=== PATIENT | female | born 1950 | race Caucasian/White ===

== ENCOUNTER 2018-08-24 13:11 | Observation (INO) ==
[2018-08-24] MEDS ORDERED: MORPHINE SULFATE 4 MG/ML SYRG IV ONE (13:30)
[2018-08-24] MEDS ORDERED: DIATRIZOATE MEGLUMINE, SODIUM 30 ML BTL PO ONE (13:30)
--- NOTE | 2018-08-24 13:34 | ERNOTE ---
Back Pain ER HPI Date of Service: 08/24/18 Presenting Symptoms: other - right back pain Time Seen by Provider: 08/24/18 13:22 Source: patient Exam Limitations: no limitations Immunizations: IMMUNIZATION HX Immunizations Up to Date Yes History of Influenza Vaccine Yes Hx Pneumococcal Vaccination Yes Allergies/Adverse Reactions: Allergies metformin Adverse Reaction (Intermediate, Verified 08/24/18 13:19) Diarrhea Home Medications: HOME MEDICATIONS Cinnamon Bark [Cinnamon] 500 mg PO DAILY 09/08/14 [Last Taken 08/15/18] L.acidoph,Paracasei, B.lactis [Probiotic] 1 ea PO DAILY 09/08/14 [Last Taken 08/15/18] Cholecalciferol (Vitamin D3) [Vitamin D] 1,000 unit PO DAILY 02/01/15 [Last Taken 08/15/18] Omeprazole [Prilosec] 40 mg PO DAILY PRN 02/01/15 [Last Taken 08/15/18] aspirin 325 mg tablet 325 mg PO DAILY 03/01/18 [Last Taken 08/15/18] blood sugar diagnostic strips See Dose Instructions .ROUTE .MEDSUPPLY #20 ea 03/01/18 [Last Taken Unknown] blood-glucose meter kit See Dose Instructions .ROUTE .MEDSUPPLY #1 ea 03/01/18 [Last Taken Unknown] cranberry concentrate-ascorbic acid 4,200 mg-20 mg capsule 1 cap PO DAILY cap 03/01/18 [Last Taken 08/15/18] lancets 28 gauge See Dose Instructions .ROUTE .MEDSUPPLY #25 ea 03/01/18 [Last Taken Unknown] noofwudn-unb-awxdu acid 0.4 mg-lycopene 300 mcg-lutein 250 mcg tablet 1 tab PO DAILY 03/01/18 [Last Taken 08/15/18] pravastatin 40 mg tablet 40 mg PO HS tab 03/01/18 [Last Taken 08/15/18] losartan 100 mg-hydrochlorothiazide 12.5 mg tablet 1 tab PO DAILY #90 tab 04/22/18 [Last Taken 08/15/18] amlodipine 10 mg tablet 10 mg PO DAILY #90 tab 05/06/18 [Last Taken 08/15/18] glimepiride 2 mg tablet 2 mg PO QAM #90 tab 05/06/18 [Last Taken 08/15/18] Contour Next Test Strips See Dose Instructions .ROUTE .MEDSUPPLY #100 ea NS 06/07/18 [Last Taken Unknown] sitagliptin 100 mg tablet 100 mg PO DAILY #90 tab 06/11/18 [Last Taken 08/15/18] sertraline 100 mg tablet 100 mg PO DAILY #90 tab 07/16/18 [Last Taken 08/15/18] sodium,potassium,mag sulfates 17.5 gram-3.13 gram-1.6 gram oral soln 177 ml PO DAILY 0 Days #354 ml 07/28/18 [Last Taken 08/16/18] Narrative: Patient presents to the ED for right low back pain. This has gotten to the point where she cannot stand it. Tylenol is not working. This is the kind of pain she had with her ruptured appendix. Nothing seems to make it better or worse, no radicular pain. no abdominal pain. No urinary Sx. Timing: Reports: constant Quality/Severity: Reports: severe Location of pain: Reports: other - right low back Activities at Onset: Reports: none Recent Injury?: Reports: no Possible Precipitating Factor: Reports: other - she had this with her ruptured appendix and it has remained but worse now Modifying Factors - (Improves): Reports: other - nothing Modifying Factors - (Worsens): Reports: other - nothing Associated Symptoms: Denies: fever/chills, constipation/incontinence, nausea/vomiting, problems urinating, difficulty walking Prior Treament: Reports: similar symptoms before Review of Systems - Review of Systems Constitutional: Absent: fever EYE: Present: no symptoms reported Respiratory: Absent: shortness of breath Cardiology: Absent: chest pain Gastrointestinal/Abdominal: Absent: abdominal pain Genitourinary: Absent: dysuria All Other Systems: All systems neg except as marked Medical History (Updated 08/16/18 @ 08:34 by Sindhu Cosme RN) Pes planus (Chronic) Onset Date: Unknown Hypothyroidism (Chronic) Onset Date: 04/09/17 Hypertriglyceridemia (Chronic) Onset Date: Unknown Hypertension (Chronic) Onset Date: Unknown GERD (gastroesophageal reflux disease) (Chronic) Onset Date: Unknown Diabetes mellitus type 2 in obese (Chronic) Onset Date: Unknown Depression (Chronic) Onset Date: Unknown Chronic renal disease, stage 3, moderately decreased glomerular filtration rate (GFR) between 30-59 mL/min/1.73 square meter Onset Date: 06/09/18 Hypercholesteremia Lives with spouse No history of alcohol use Non-tobacco user Perforated appendicitis Onset Date: 06/08/18 Wears glasses Surgical History: Surgical History (Updated 08/17/18 @ 11:09 by Vanna Landin RN) History of abdominal surgery Onset Date: 06/09/18 [facility]. IR Ct drain abscess/cyst retroperitoneal, abdomen. History of bilateral cataract extraction Onset Date: ~02/2015 Dr. Estiven Amaro History of colonoscopy Onset Date: 08/16/18 [facility]-10/30/14 normal. Recheck 10 years. 08/16/18-diverticulosis. Recheck 10 yrs. History of esophagogastroduodenoscopy (EGD) Onset Date: 10/30/14 [facility]-clotest negative. Inflammation GE junction, changes compatible w/[employer] History of left breast biopsy Onset Date: Unknown History of left breast biopsy Onset Date: Unknown History of sinogram with drain removal Onset Date: 06/18/18 Dr. Tiffani Kumar, [facility]. Family History: Family History (Updated 08/16/18 @ 08:35 by Sindhu Cosme RN) Brother Diabetes Sister Diabetes Father , age 92-old age History of coronary artery disease Diabetes Mother , qge 60-CAD CVA (cerebral vascular accident) History of coronary artery disease Brother , age 53-unknown cause Schizophrenia Daughter Alive and well Daughter Family history of thyroid problem Social History: Preferred Language Malay Do you have any yazidi or Yes: congregational cultural preference? Smoking Status Never smoker Abuse History No History of abuse Psych History Hx of Anxiety,Hx of Depression Alcohol Use none Drug Use none (Last Updated 07/29/18 @ 23:48 by Chiki Ch DO) No Social History Section defined Physical Exam - Physical Exam General Appearance: Present: alert, no apparent distress Head Exam: Present: normal inspection, no evidence of injury Eye Exam: Normal inspection: bilateral, PERRL: bilateral Ears, Nose, Throat: Present: normal ENT inspection Neck: Present: normal inspection Respiratory: Present: no respiratory distress, normal breath sounds, no accessory muscle use, lungs clear Cardiovascular/Chest: Present: regular rate, rhythm, normal peripheral pulses Gastrointestinal/Abdominal: Present: normal bowel sounds, nontender, nondistended, soft Back Exam: Absent: CVA tenderness (R), CVA tenderness (L) Extremity Exam: Present: normal inspection Neurological Exam: Present: alert, no motor/sensory deficits Skin Exam: Present: normal color, warm/dry Progress - Results and Orders Patient's Lab Results:: I have reviewed the patient's lab results. - Vital Signs Patient's Vital Signs:: I have reviewed the patient's vital signs. Vital Signs: Vital Signs 08/24/18 13:12 Temperature 36.5 C Pulse Rate 71 Respiratory Rate 14 Blood Pressure 120/43 O2 Sat by Pulse Oximetry 99 - CT/Ultrasound CT/Ultrasound Narrative: I reviewed official radiology report - Progress/Reassessment Chief Complaint: Back Pain Progress Note-Subjective: 08/24/18 17:26 IV ABx given for mild UTI. Results d/w Dr Bowman who saw the patient in the ED and will take the patient to the ED. Departure Clinical Impression: Back pain, Acute appendicitis - Departure Disposition: Still a patient Condition: Stable Referrals: Chiki Ch DO [Primary Care Provider] -
[2018-08-24] MEDS: NORMAL SALINE 1,000 ML IV ONE ×2 (13:43→18:54)
[2018-08-24 13:57] LABS: Hematocrit 33.6 % (37.0-47.0); Hemoglobin 10.7 gm/dL (12.5-16.0); Mean Cell Volume 92.6 fl (78-100); Mean Corpuscular Hemoglobin 29.5 pg (27-31); Mean Corpuscular Hgb Conc 31.8 g/dl (32-36); Mean Platelet Volume 9.9 fl (8-12.5); Neutrophil # 3.4 K/mm3 (1.3-6.0); Neutrophil % 56.1 % (42-75.0); Platelet Count 192 K/mm3 (150-450); Red Blood Count 3.63 M/mm3 (4.2-5.4); Red Cell Distribution Width 15.7 % (11.5-14.0)
[2018-08-24 14:26] LABS: ALT 22 U/L (19-67); AST 20 U/L (0-48); Albumin * 3.9 gm/dl (3.4-5.0); Alkaline Phosphatase * 127 U/L (50-170); BUN/Creatinine Ratio 29.3 (9.0-21.6); Bilirubin, Total 0.4 mg/dL (0.0-1.1); Blood Urea Nitrogen 39 mg/dL (3-23); Ca. Corrected For Albumin 8.4 mg/dL (8.4-10.2); Calcium * 8.6 mg/dL (7.9-10.9); Carbon Dioxide 21.6 mmol/L (24-32.6); Chloride 109 mmol/L (97-106); Glucose * 170 mg/dL (70-110); Lipase 202 U/L (73-393); Potassium 5.6 mmol/L (3.4-4.6); Sodium 141 mmol/L (132-142)
[2018-08-24 15:48] LABS: Urine Bilirubin Negative (NEGATIVE); Urine Blood 50 /ul (NEGATIVE); Urine Ketone Negative (NEGATIVE); Urine Nitrite Negative (NEGATIVE); Urine Protein Negative (NEGATIVE); Urine Urobilinogen Normal (NORMAL); Urine pH 5.5 pH (5.0-7.0)
[2018-08-24 15:54] LABS: Urine Appearance Clear (CLEAR); Urine Bacteria TRACE; Urine Color Yellow
[2018-08-24] MEDS ORDERED: cefTRIAXone SODIUM 1,000 MG/100 ML BAG IV ONE (15:59)
--- NOTE | 2018-08-24 17:29 | HP ---
Chief Complaint - Chief Complaint Date of Service: 08/24/18 Time of Service: 17:23 Chief Complaint: chronic appendicitis History of Present Illness: Tapan is a pleasant 68-year-old female who was initially seen in May for a ruptured appendicitis. She was transferred to the [facility] for a per cutaneous drain. She was told at that time there is a low chance of getting recurrent appendicitis, and that she did not need her appendix removed. She has since had a colonoscopy with Dr. Tsai. She has not felt well since May. Her pain has always been in her right lower back and she has never had abdominal pain with this. Her appendix is retrocecal. She had a CT scan today which shows acute appendicitis. Medical History (Updated 08/16/18 @ 08:34 by Sindhu Cosme RN) Pes planus (Chronic) Onset Date: Unknown Hypothyroidism (Chronic) Onset Date: 04/09/17 Hypertriglyceridemia (Chronic) Onset Date: Unknown Hypertension (Chronic) Onset Date: Unknown GERD (gastroesophageal reflux disease) (Chronic) Onset Date: Unknown Diabetes mellitus type 2 in obese (Chronic) Onset Date: Unknown Depression (Chronic) Onset Date: Unknown Chronic renal disease, stage 3, moderately decreased glomerular filtration rate (GFR) between 30-59 mL/min/1.73 square meter Onset Date: 06/09/18 Hypercholesteremia Lives with spouse No history of alcohol use Non-tobacco user Perforated appendicitis Onset Date: 06/08/18 Wears glasses Surgical History: Surgical History (Updated 08/17/18 @ 11:09 by Vanna Landin RN) History of abdominal surgery Onset Date: 06/09/18 [facility]. IR Ct drain abscess/cyst retroperitoneal, abdomen. History of bilateral cataract extraction Onset Date: ~02/2015 Dr. Estiven Amaro History of colonoscopy Onset Date: 08/16/18 [place]-10/30/14 normal. Recheck 10 years. 08/16/18-diverticulosis. Recheck 10 yrs. History of esophagogastroduodenoscopy (EGD) Onset Date: 10/30/14 [place]-clotest negative. Inflammation GE junction, changes compatible w/[employer] History of left breast biopsy Onset Date: Unknown History of left breast biopsy Onset Date: Unknown History of sinogram with drain removal Onset Date: 06/18/18 Dr. Tiffani Kumar, [facility]. Family History: Family History (Updated 08/16/18 @ 08:35 by Sindhu Cosme RN) Brother Diabetes Sister Diabetes Father , age 92-old age Diabetes History of coronary artery disease Mother , qge 60-CAD History of coronary artery disease CVA (cerebral vascular accident) Brother , age 53-unknown cause Schizophrenia Daughter Alive and well Daughter Family history of thyroid problem Social History: Preferred Language Lithuanian Do you have any yazdanism or Yes: confucianist cultural preference? Smoking Status Never smoker Abuse History No History of abuse Psych History Hx of Anxiety,Hx of Depression Alcohol Use none Drug Use none (Last Updated 07/29/18 @ 23:48 by Chiki Ch DO) No Social History Section defined Review Of Systems (GEN) - Review of Systems Generalized/Overall Review: Present: Malaise EENTM: Present: No Symptoms Reported Respiratory: Present: No Symptoms Reported Cardiac: Present: No Symptoms Reported Abdominal: Present: No Symptoms Reported Genitourinary: Present: No Symptoms Reported Musculoskeletal: Present: Back Pain Neurological: Present: No Symptoms Reported Skin: Present: No Symptoms Reported Endocrine: Present: No Symptoms Reported Immunizations: IMMUNIZATION HX Immunizations Up to Date Yes History of Influenza Vaccine Yes Hx Pneumococcal Vaccination Yes Allergies/Adverse Reactions: Allergies Allergy/AdvReac Type Severity Reaction Status Date / Time metformin AdvReac Intermediate Diarrhea Verified 08/24/18 13:19 Home Medications: HOME MEDICATIONS Cinnamon Bark [Cinnamon] 500 mg PO DAILY 09/08/14 [Last Taken 08/15/18] L.acidoph,Paracasei, B.lactis [Probiotic] 1 ea PO DAILY 09/08/14 [Last Taken 08/15/18] Cholecalciferol (Vitamin D3) [Vitamin D] 1,000 unit PO DAILY 02/01/15 [Last Taken 08/15/18] Omeprazole [Prilosec] 40 mg PO DAILY PRN 02/01/15 [Last Taken 08/15/18] aspirin 325 mg tablet 325 mg PO DAILY 03/01/18 [Last Taken 08/15/18] blood sugar diagnostic strips See Dose Instructions .ROUTE .MEDSUPPLY #20 ea 03/01/18 [Last Taken Unknown] blood-glucose meter kit See Dose Instructions .ROUTE .MEDSUPPLY #1 ea 03/01/18 [Last Taken Unknown] cranberry concentrate-ascorbic acid 4,200 mg-20 mg capsule 1 cap PO DAILY cap 03/01/18 [Last Taken 08/15/18] lancets 28 gauge See Dose Instructions .ROUTE .MEDSUPPLY #25 ea 03/01/18 [Last Taken Unknown] nojjwctw-syh-bpdtj acid 0.4 mg-lycopene 300 mcg-lutein 250 mcg tablet 1 tab PO DAILY 03/01/18 [Last Taken 08/15/18] pravastatin 40 mg tablet 40 mg PO HS tab 03/01/18 [Last Taken 08/15/18] losartan 100 mg-hydrochlorothiazide 12.5 mg tablet 1 tab PO DAILY #90 tab 04/22/18 [Last Taken 08/15/18] amlodipine 10 mg tablet 10 mg PO DAILY #90 tab 05/06/18 [Last Taken 08/15/18] glimepiride 2 mg tablet 2 mg PO QAM #90 tab 05/06/18 [Last Taken 08/15/18] Contour Next Test Strips See Dose Instructions .ROUTE .MEDSUPPLY #100 ea NS 06/07/18 [Last Taken Unknown] sitagliptin 100 mg tablet 100 mg PO DAILY #90 tab 06/11/18 [Last Taken 08/15/18] sertraline 100 mg tablet 100 mg PO DAILY #90 tab 07/16/18 [Last Taken 08/15/18] sodium,potassium,mag sulfates 17.5 gram-3.13 gram-1.6 gram oral soln 177 ml PO DAILY 0 Days #354 ml 07/28/18 [Last Taken 08/16/18] Exam - Exam Vital Signs: Vital Signs - Last Taken Temp 36.5 C 08/24/18 13:12 Pulse 69 08/24/18 16:44 Resp 14 08/24/18 16:44 BP 131/49 08/24/18 16:44 Pulse Ox 95 08/24/18 16:44 Constitutional: Present: Alert, Oriented x3, Cooperative ENT Exam: Present: hearing grossly normal Eye Exam: bilateral eye: normal inspection Neck: Present: supple Back Exam: Present: CVA tenderness (R) Breasts: Present: Exam deferred Respiratory: Present: lungs clear, normal breath sounds, no respiratory distress Cardiovascular/Chest: Present: regular rate, rhythm Abdomen: Present: Normal bowel sounds, soft, nontender, no rebound tenderness /Rectal: Present: Exam deferred Extremity: Present: normal range of motion Skin Exam: Present: normal color Neurologic: Present: director underwriter sales II-XII nml as tested Appearance: Present: appropriate appearance, appropriate insight Eye contact: Present: cooperative, good eye contact Thoughts: Present: normal thought pattern Diagnostic Studies: Abnormal Lab Results 08/24/18 08/24/18 08/24/18 Range/Units 13:45 13:45 Unknown RBC 3.63 L (4.2-5.4) M/mm3 Hgb 10.7 L (12.5-16.0) gm/dL Hct 33.6 L (37.0-47.0) % MCHC 31.8 L (32-36) g/dl RDW 15.7 H (11.5-14.0) % Monocytes % 10.3 H (0.0-9) % Eosinophils % 5.8 H (0.0-3.0) % Potassium 5.6 H (3.4-4.6) mmol/L Chloride 109 H (97-106) mmol/L Carbon Dioxide 21.6 L (24-32.6) mmol/L Anion Gap 16.0 H (6.8-13.8) mmol/L BUN 39 H (3-23) mg/dL Est GFR (Non-Af Amer) 42 L (60-130) mL/min BUN/Creatinine Ratio 29.3 H (9.0-21.6) Random Glucose 170 H (70-110) mg/dL Urine Blood 50 H (NEGATIVE) /ul Ur Leukocyte Esterase 75 H (NEGATIVE) /ul Urine RBC 10-25 H (0-5) /hpf Urine WBC 5-10 H (0-5) /hpf Laboratory Results WBC 6.0 K/mm3 (4.0-10.5) 08/24/18 13:45 RBC 3.63 M/mm3 (4.2-5.4) L 08/24/18 13:45 Hgb 10.7 gm/dL (12.5-16.0) L 08/24/18 13:45 Hct 33.6 % (37.0-47.0) L 08/24/18 13:45 MCV 92.6 fl (78-100) 08/24/18 13:45 MCH 29.5 pg (27-31) 08/24/18 13:45 MCHC 31.8 g/dl (32-36) L 08/24/18 13:45 RDW 15.7 % (11.5-14.0) H 08/24/18 13:45 Plt Count 192 K/mm3 (150-450) 08/24/18 13:45 MPV 9.9 fl (8-12.5) 08/24/18 13:45 Immature Gran % (Auto) 0.20 % (0.001-0.429) 08/24/18 13:45 Immature Gran # (Auto) 0.01 K/mm3 (0.000-0.0310) 08/24/18 13:45 56.1 % (42-75.0) 08/24/18 13:45 26.9 % (20-51) 08/24/18 13:45 10.3 % (0.0-9) H 08/24/18 13:45 5.8 % (0.0-3.0) H 08/24/18 13:45 0.7 % (0.0-1.0) 08/24/18 13:45 Nucleated RBC % 0.0 k/mm3 (0-1) 08/24/18 13:45 3.4 K/mm3 (1.3-6.0) 08/24/18 13:45 1.62 k/mm3 (1.5-3.5) 08/24/18 13:45 0.6 k/mm3 (0.0-1.0) 08/24/18 13:45 0.4 k/mm3 (0.0-0.7) 08/24/18 13:45 Absolute Basophils 0.0 k/mm3 (0.0-0.1) 08/24/18 13:45 Sodium 141 mmol/L (132-142) 08/24/18 13:45 142 mmol/L (130-142) 08/24/18 13:45 Potassium 5.6 mmol/L (3.4-4.6) H 08/24/18 13:45 Chloride 109 mmol/L (97-106) H 08/24/18 13:45 Carbon Dioxide 21.6 mmol/L (24-32.6) L 08/24/18 13:45 16.0 mmol/L (6.8-13.8) H 08/24/18 13:45 BUN 39 mg/dL (3-23) H 08/24/18 13:45 1.33 mg/dL (0.4-1.4) 08/24/18 13:45 Est GFR (Non-Af Amer) 42 mL/min (60-130) L 08/24/18 13:45 29.3 (9.0-21.6) H 08/24/18 13:45 170 mg/dL (70-110) H 08/24/18 13:45 Calcium 8.6 mg/dL (7.9-10.9) 08/24/18 13:45 Calcium Adj for Albumin 8.4 mg/dL (8.4-10.2) 08/24/18 13:45 0.4 mg/dL (0.0-1.1) 08/24/18 13:45 AST 20 U/L (0-48) 08/24/18 13:45 ALT 22 U/L (19-67) 08/24/18 13:45 127 U/L (50-170) 08/24/18 13:45 C-Reactive Prot, Quant Less than 0.2 mg/dL (0.0-0.9) 08/24/18 13:45 8.0 gm/dL (6.2-8.2) 08/24/18 13:45 3.9 gm/dl (3.4-5.0) 08/24/18 13:45 202 U/L (73-393) 08/24/18 13:45 Yellow 08/24/18 Unknown Clear (CLEAR) 08/24/18 Unknown 5.5 pH (5.0-7.0) 08/24/18 Unknown Ur Specific [place] 1.020 SP.GR. (1.005-1.010) 08/24/18 Unknown Negative mg/dL (NEGATIVE) 08/24/18 Unknown Negative mg/dL (NEGATIVE) 08/24/18 Unknown Negative mg/dL (NEGATIVE) 08/24/18 Unknown 50 /ul (NEGATIVE) H 08/24/18 Unknown Negative (NEGATIVE) 08/24/18 Unknown Negative mg/dl (NEGATIVE) 08/24/18 Unknown Normal EU/dl (NORMAL) 08/24/18 Unknown Ur Leukocyte Esterase 75 /ul (NEGATIVE) H 08/24/18 Unknown 10-25 /hpf (0-5) H 08/24/18 Unknown 5-10 /hpf (0-5) H 08/24/18 Unknown Ur Epithelial Cells 0-5 /hpf (0-5) 08/24/18 Unknown Trace (NONE) 08/24/18 Unknown Culture to follow 08/24/18 Unknown Assessment/Plan - Narrative Narrative: We'll plan to go to the operating room for laparoscopic versus open appendectomy. Risks and benefits of the procedure were discussed with the patient including bleeding, infection, and need for open surgery. She voices understanding and would like to proceed. She has not felt well since she had the ruptured appendicitis in May. I discussed the case with her primary care provider Dr. hC as well. Thank you for allowing me to participate in the care of your patient, please call for any questions. - Assessment/Plan (1) Chronic appendicitis Problem: Acute (2) UTI (urinary tract infection) Problem: Resolved (3) Diabetes mellitus type 2 in nonobese Problem: Chronic
--- NOTE | 2018-08-24 18:04 | ANES ---
Anesthesia Pre Procedure Eval Vitals/Labs: Last Vital Signs Temp 36.5 C 08/24/18 13:12 Pulse 69 08/24/18 16:44 Resp 14 08/24/18 16:44 BP 131/49 08/24/18 16:44 Pulse Ox 95 08/24/18 16:44 HOME MEDICATIONS Cinnamon Bark [Cinnamon] 500 mg PO DAILY 09/08/14 [Last Taken 08/15/18] L.acidoph,Paracasei, B.lactis [Probiotic] 1 ea PO DAILY 09/08/14 [Last Taken 08/15/18] Cholecalciferol (Vitamin D3) [Vitamin D] 1,000 unit PO DAILY 02/01/15 [Last Taken 08/15/18] Omeprazole [Prilosec] 40 mg PO DAILY PRN 02/01/15 [Last Taken 08/15/18] aspirin 325 mg tablet 325 mg PO DAILY 03/01/18 [Last Taken 08/15/18] blood sugar diagnostic strips See Dose Instructions .ROUTE .MEDSUPPLY #20 ea 03/01/18 [Last Taken Unknown] blood-glucose meter kit See Dose Instructions .ROUTE .MEDSUPPLY #1 ea 03/01/18 [Last Taken Unknown] cranberry concentrate-ascorbic acid 4,200 mg-20 mg capsule 1 cap PO DAILY cap 03/01/18 [Last Taken 08/15/18] lancets 28 gauge See Dose Instructions .ROUTE .MEDSUPPLY #25 ea 03/01/18 [Last Taken Unknown] emodgzqs-tlw-hyrjj acid 0.4 mg-lycopene 300 mcg-lutein 250 mcg tablet 1 tab PO DAILY 03/01/18 [Last Taken 08/15/18] pravastatin 40 mg tablet 40 mg PO HS tab 03/01/18 [Last Taken 08/15/18] losartan 100 mg-hydrochlorothiazide 12.5 mg tablet 1 tab PO DAILY #90 tab 04/22/18 [Last Taken 08/15/18] amlodipine 10 mg tablet 10 mg PO DAILY #90 tab 05/06/18 [Last Taken 08/15/18] glimepiride 2 mg tablet 2 mg PO QAM #90 tab 05/06/18 [Last Taken 08/15/18] Contour Next Test Strips See Dose Instructions .ROUTE .MEDSUPPLY #100 ea NS 06/07/18 [Last Taken Unknown] sitagliptin 100 mg tablet 100 mg PO DAILY #90 tab 06/11/18 [Last Taken 08/15/18] sertraline 100 mg tablet 100 mg PO DAILY #90 tab 07/16/18 [Last Taken 08/15/18] sodium,potassium,mag sulfates 17.5 gram-3.13 gram-1.6 gram oral soln 177 ml PO DAILY 0 Days #354 ml 07/28/18 [Last Taken 08/16/18] Allergies/Adverse Reactions: Allergies Allergy/AdvReac Type Severity Reaction Status Date / Time metformin AdvReac Intermediate Diarrhea Verified 08/24/18 13:19 - Planned Procedure Planned Procedure: back pain Medication List Reviewed:: Yes Allergies Verified: Yes Medical History (Updated 08/24/18 @ 17:29 by Shazia Bowman DO) Pes planus (Chronic) Onset Date: Unknown Hypothyroidism (Chronic) Onset Date: 04/09/17 Hypertriglyceridemia (Chronic) Onset Date: Unknown Hypertension (Chronic) Onset Date: Unknown GERD (gastroesophageal reflux disease) (Chronic) Onset Date: Unknown Diabetes mellitus type 2 in obese (Chronic) Onset Date: Unknown Depression (Chronic) Onset Date: Unknown Chronic renal disease, stage 3, moderately decreased glomerular filtration rate (GFR) between 30-59 mL/min/1.73 square meter Onset Date: 06/09/18 Hypercholesteremia Lives with spouse No history of alcohol use Non-tobacco user Perforated appendicitis Onset Date: 06/08/18 Wears glasses Surgical History (Updated 08/24/18 @ 17:29 by Shazia Bowman DO) History of abdominal surgery Onset Date: 06/09/18 [facility]. Ct drain abscess/cyst retroperitoneal, abdomen. History of bilateral cataract extraction Onset Date: ~02/2015 Dr. Estiven Amaro History of colonoscopy Onset Date: 08/16/18 [place]-10/30/14 normal. Recheck 10 years. 08/16/18-diverticulosis. Recheck 10 yrs. History of esophagogastroduodenoscopy (EGD) Onset Date: 10/30/14 [facility]-clotest negative. Inflammation GE junction, changes compatible w/[employer] History of left breast biopsy Onset Date: Unknown History of left breast biopsy Onset Date: Unknown History of sinogram with drain removal Onset Date: 06/18/18 Dr. Tiffani Kumar, [facility]. Family History (Updated 08/16/18 @ 08:35 by Sindhu Cosme RN) Brother Diabetes Sister Diabetes Father , age 92-old age Diabetes History of coronary artery disease Mother , qge 60-CAD History of coronary artery disease CVA (cerebral vascular accident) Brother , age 53-unknown cause Schizophrenia Daughter Alive and well Daughter Family history of thyroid problem - Family Anesthesia History Family History:: no untoward family reactions to anesthesia - Airway/Neck/Teeth Within Normal Limits:: Yes Teeth Condition: intact Neck Exam: full range of motion Mallampatti Score: 2 Thyromental (T-M) distance: > 6 cm Mandibulo Hyoid distance: > 3 cm - Respiratory Respiratory Physical: lungs clear Smoking Status: Never smoker Sleep Apnea currently treated: No Sleep Apnea by current assessment: No - Cardiovascular Cardiac History: CVA/stroke, hypertension Tolerate Activity: Fair Heart Sounds: S1 & S2, Regular - Anesthesia Assessment and Plan ASA Class: PS, II, E Anesthesia Type Plan: General ET Planned difficult intubation/equipment available: No
[2018-08-24] MEDS ORDERED: BUPIVACAINE HCL 50 ML VIAL IJ ONE (19:17)
[2018-08-24] MEDS ORDERED: ACETAMINOPHEN 325 MG TABLET PO PRN (19:38)
[2018-08-24] MEDS ORDERED: ONDANSETRON HCL/PF 2 MG/ML VIAL IV PRN (19:38)
[2018-08-24] MEDS ORDERED: DEXTROSE 5%-0.5 NORMAL SALINE 1,000 ML IV PRN (19:49)
--- NOTE | 2018-08-24 19:51 | ANES ---
Post Anesthesia Discharge - Transfer of Care Transfer of Care handoff given to nurse: Yes - Discharge from PACU Discharge from PACU when meets criteria: Yes
--- NOTE | 2018-08-24 19:51 | ANES ---
Post Anesthesia Assessment - Vital Signs Vitals: Last Vital Signs Temp 36.2 C 08/24/18 19:35 Pulse 57 L 08/24/18 19:45 Resp 16 08/24/18 19:45 BP 119/51 08/24/18 19:45 Pulse Ox 96 08/24/18 19:45 Airway Patency: Normal - Mental Status Level Of Consciousness: Awake - Pain Level Pain Score: 2 - N/V Assessment Nausea/Vomiting Presence: None Dehydration:: No
[2018-08-24] MEDS: HYDROcodone/ACETAMINOPHEN 1 EACH TABLET PO PRN (21:00)
[2018-08-25] MEDS ORDERED: HYDROmorphone HCL 1 MG/ML DISP.SYRIN ONE (01:55)
[2018-08-25] MEDS: POTASSIUM CHLORIDE/D5-0.5NS 1,000 ML IV SCH ×2 (02:01→07:10)
[2018-08-25] MEDS: HYDROcodone/ACETAMINOPHEN 1 EACH TABLET PO PRN (06:14)
--- NOTE | 2018-08-25 09:47 | DS ---
(1) Chronic appendicitis Problem: Resolved (2) UTI (urinary tract infection) Problem: Resolved (3) Diabetes mellitus type 2 in nonobese Problem: Chronic Description of Stay: Tapan was admitted for chronic appendicitis. She was taken to the OR for laparoscopic appendectomy. She is feeling better this morning and is ready for discharge. Procedures Performed: see notes below List Procedures: Laparoscopic appendectomy Results and Findings: Pending Mircobiology Results 08/24/18 Unknown Urine,Catheterized Urine Culture - Preliminary Ruling Out Pathogen Lab Pending Results 08/24/18 13:45: WBC 6.0, RBC 3.63 L, Hgb 10.7 L, Hct 33.6 L, MCV 92.6, MCH 29.5, MCHC 31.8 L, RDW 15.7 H, Plt Count 192, MPV 9.9, Immature Gran % (Auto) 0.20, Immature Gran # (Auto) 0.01, Neutrophils % 56.1, Lymphocytes % 26.9, Monocytes % 10.3 H, Eosinophils % 5.8 H, Basophils % 0.7, Nucleated RBC % 0.0, Neutrophils # 3.4, Lymphocytes # 1.62, Monocytes # 0.6, Eosinophils # 0.4, Absolute Basophils 0.0 08/24/18 13:45: Sodium 141, Plasma Sodium 142, Potassium 5.6 H, Chloride 109 H, Carbon Dioxide 21.6 L, Anion Gap 16.0 H, BUN 39 H, Creatinine 1.33, Est GFR (Non-Af Amer) 42 L, BUN/Creatinine Ratio 29.3 H, Random Glucose 170 H, Calcium 8.6, Calcium Adj for Albumin 8.4, Total Bilirubin 0.4, AST 20, ALT 22, Alkaline Phosphatase 127, C-Reactive Prot, Quant Less than 0.2, Total Protein 8.0, Albumin 3.9, Lipase 202 08/24/18 20:00: Pathology Specimen Spec to path 08/24/18 : Urine Color Yellow, Urine Appearance Clear, Urine pH 5.5, Ur Specific [place] 1.020, Urine Protein Negative, Urine Glucose (UA) Negative, Urine Ketones Negative, Urine Blood 50 H, Urine Nitrate Negative, Urine Bilirubin Negative, Urine Urobilinogen Normal, Ur Leukocyte Esterase 75 H, Urine RBC 10-25 H, Urine WBC 5-10 H, Ur Epithelial Cells 0-5, Urine Bacteria Trace, Urine Culture Comments Culture to follow Discharge Location: Home Disposition: Home self-care Condition: Stable Discharge Activity: Activity as tolerated Discharge Diet: General/regular food Referrals: Chiki Ch DO [Primary Care Provider] - Complete Home Medications List: Complete Home Medication List: Cinnamon Bark [Cinnamon] 500 mg PO DAILY 09/08/14 L.acidoph,Paracasei, B.lactis [Probiotic] 1 ea PO DAILY 09/08/14 Cholecalciferol (Vitamin D3) [Vitamin D3] 1,000 unit PO DAILY 02/01/15 Omeprazole [Prilosec] 40 mg PO DAILY PRN 02/01/15 aspirin 325 mg tablet 325 mg PO DAILY 03/01/18 blood sugar diagnostic strips See Dose Instructions .ROUTE .MEDSUPPLY #20 ea 03/01/18 blood-glucose meter kit See Dose Instructions .ROUTE .MEDSUPPLY #1 ea 03/01/18 cranberry concentrate-ascorbic acid 4,200 mg-20 mg capsule 1 cap PO DAILY cap 03/01/18 lancets 28 gauge See Dose Instructions .ROUTE .MEDSUPPLY #25 ea 03/01/18 mwprfjzo-wxk-jquqt acid 0.4 mg-lycopene 300 mcg-lutein 250 mcg tablet 1 tab PO DAILY 03/01/18 pravastatin 40 mg tablet 40 mg PO HS tab 03/01/18 losartan 100 mg-hydrochlorothiazide 12.5 mg tablet 1 tab PO DAILY #90 tab 04/22/18 amlodipine 10 mg tablet 10 mg PO DAILY #90 tab 05/06/18 glimepiride 2 mg tablet 2 mg PO QAM #90 tab 05/06/18 Contour Next Test Strips See Dose Instructions .ROUTE .MEDSUPPLY #100 ea NS 06/07/18 sitagliptin 100 mg tablet 100 mg PO DAILY #90 tab 06/11/18 sertraline 100 mg tablet 100 mg PO DAILY #90 tab 07/16/18 Acetaminophen [Tylenol] 650 mg PO Q6H PRN tab 08/25/18 HYDROcodone/ACETAMINOPHEN [[place] 5-325] 2 ea PO Q6H PRN tab 08/25/18
[2018-08-25 11:03] VITALS: BP 145/70
--- NOTE | 2018-08-25 13:40 | OR ---
Operative Report - Dictated Report Narrative: Date of Service: 08/25/18 Procedure: laparoscopic appendectomy Pre-procedure diagnosis: chronic appendicitis Post-procedure diagnosis: same Surgeon: Dr. Shazia Bowman Anesthesia: general Indication for procedure: Tapan is a pleasant 68-year-old female who had a ruptured appendicitis earlier this spring. She had a percutaneous drain placed at the [facility]. She did not have her appendix removed. Her pain has been in the right lower back this entire time. She has had a colonoscopy since then. She presents to the emergency room with worsening right lower quadrant back pain. CT scan was done which shows appendicitis. Description of procedure: After appropriate informed consent was obtained patient was taken to the operating room, placed in the supine position. General anesthesia was achieved. The RN placed a Morillo catheter. The patient was prepped and draped in the usual sterile fashion. A 5 mm periumbilical incision was made, hemostat was used to dissect down to the fascia. A Veress needle was inserted, a saline drop test was performed which was satisfactory. The abdomen was insufflated to 15 mmHg. A 5mm blunt trocar was placed at the umbilicus. The camera was inserted, there was no evidence of a trocar injury. A 12 mm trocar was placed in the left lower quadrant of the abdomen. A 5 mm trocar was placed in the suprapubic region. The patient was placed in a head down, rotated left position, to facilitate exposure. The appendix was identified, it appeared consistent with chronic appendicitis. The area of the appendix was matted and a small amount of purulent material was present which was suctioned and flushed. The appendix was not congruent. There were 3 separate pieces of appendix present. One portion of the appendix was still attached to the cecum. A window was made in the mesoappendix. The 45 mm echelon stapler with the white load was placed across the base of the appendix. There was good hemostasis. The mesial appendix was obliterated. There was good hemostasis, despite not stapling the mesoappendix. The appendiceal piece were removed through the 12mm trocar. The abdomen was inspected and the staple line was intact, with good hemostasis. The remainder of the abdomen was inspected and was satisfactory. The area where the appendix was was irrigated and flushed. Again inspected the retrocecal area for any remaining pieces of appendix. No other signs of infection or appendix were present. The 12 mm trocar site was closed with an 0 Vicryl suture using a PMI device. The abdomen was desufflated. Local anesthetic was injected. The incisions were closed with inverted interrupted 4-0 Monocryl sutures. Mastisol and Steri-Strips were applied. The patient tolerated the procedure well and was transported to the PACU in satisfactory condition. Estimated blood loss: minimal Complications: none Specimens to pathology: appendix Disposition: The patient will be admitted to the floor for observation.
== END 2018-08-25 10:50 | disposition home or self-care (01) ==
LOC: ER 13:11 → AMB 18:13 → MS 18:13
PROVIDERS: ADMIT Surgery; ATTEND Surgery
CPT/HCPCS: 36415; 74176; 80053; 81001; 83690; 85025; 86140; 87077; 87086; 87186; 88304; 99285; G0378

== ENCOUNTER 2019-08-05 19:47 | Inpatient (IN) ==
--- NOTE | 2019-08-05 20:12 | ERNOTE ---
Medical Problem HPI - General Chief Complaint: General Assessment Time Seen by Provider: 08/05/19 20:04 Source: patient, RN notes reviewed Exam Limitations: no limitations - Immun/Allergies/Home Medications Immunizations: IMMUNIZATION HX Immunizations Up to Date Yes History of Influenza Vaccine Yes Hx Pneumococcal Vaccination Yes Allergies/Adverse Reactions: Allergies sulfamethoxazole [From Bactrim] Allergy (Intermediate, Verified 08/05/19 20:10) Hives trimethoprim [From Bactrim] Allergy (Intermediate, Verified 08/05/19 20:10) Hives metformin Adverse Reaction (Intermediate, Verified 08/05/19 20:10) Diarrhea Home Medications: HOME MEDICATIONS Cinnamon Bark [Cinnamon] 500 mg PO DAILY 09/08/14 [Last Taken 08/15/18] L.acidoph,Paracasei, B.lactis [Probiotic] 1 ea PO DAILY 09/08/14 [Last Taken 08/15/18] Cholecalciferol (Vitamin D3) [Vitamin D3] 1,000 unit PO DAILY 02/01/15 [Last Taken 08/15/18] aspirin 325 mg tablet 325 mg PO DAILY 03/01/18 [Last Taken 08/15/18] blood sugar diagnostic See Dose Instructions .ROUTE .MEDSUPPLY #20 ea 03/01/18 [Last Taken Unknown] blood-glucose meter See Dose Instructions .ROUTE .MEDSUPPLY #1 ea 03/01/18 [Last Taken Unknown] cranberry concentrate-ascorbic acid 4,200 mg-20 mg capsule 1 cap PO DAILY cap 03/01/18 [Last Taken 08/15/18] lancets 28 gauge See Dose Instructions .ROUTE .MEDSUPPLY #25 ea 03/01/18 [Last Taken Unknown] piqzqehg-peh-oasrp acid 0.4 mg-lycopene 300 mcg-lutein 250 mcg tablet 1 tab PO DAILY 03/01/18 [Last Taken 08/15/18] Contour Next Test Strips See Dose Instructions .ROUTE .MEDSUPPLY #100 ea NS 06/07/18 [Last Taken Unknown] Acetaminophen [Tylenol] 650 mg PO Q6H PRN tab 08/25/18 [Last Taken Unknown] magnesium 250 mg tablet 500 mg PO DAILY tab 02/15/19 [Last Taken Unknown] ferrous gluconate 324 mg (37.5 mg iron) tablet 324 mg PO TID 05/24/19 [Last Taken Unknown] melatonin 3 mg tablet 3 mg PO HS 05/24/19 [Last Taken Unknown] sennosides 8.6 mg tablet 8.6 mg PO BID tab 05/24/19 [Last Taken Unknown] alprazolam 0.25 mg tablet 0.25 mg PO HS PRN #90 tab 06/02/19 [Last Taken Unknown] amlodipine 10 mg tablet 10 mg PO DAILY #90 tab 06/02/19 [Last Taken Unknown] bumetanide 2 mg tablet 2 mg PO BID PRN 06/02/19 [Last Taken Unknown] insulin glargine 100 unit/mL subcutaneous solution 7 unit SUBCUT DAILY #10 ml 06/02/19 [Last Taken Unknown] insulin lispro 100 unit/mL subcutaneous solution 8 unit SUBCUT AC #10 ml 06/02/19 [Last Taken Unknown] isosorbide dinitrate 10 mg tablet 10 mg PO TID #90 tab 06/02/19 [Last Taken Unknown] omeprazole 40 mg capsule,delayed release 40 mg PO DAILY PRN #90 cap 06/02/19 [Last Taken Unknown] pravastatin 40 mg tablet 40 mg PO HS #90 tab 06/02/19 [Last Taken Unknown] sertraline 100 mg tablet 100 mg PO DAILY #90 tab 06/02/19 [Last Taken Unknown] sertraline 25 mg tablet 25 mg PO DAILY #90 tab 06/02/19 [Last Taken Unknown] insulin syr/ndl U100 half dustin 0.3 mL 31 gauge x 08/12" See Rx Instructions .ROUTE .MEDSUPPLY #100 ea 06/03/19 [Last Taken Unknown] levofloxacin 750 mg tablet 750 mg PO Q48H 14 Days #7 tab 08/03/19 [Last Taken Unknown] Glimepiride mg PO DAILY 08/05/19 [Last Taken Unknown] Losartan/Hydrochlorothiazide [Losartan-Hctz 100-12.5 mg Tab] 1 ea PO DAILY 08/05/19 [Last Taken Unknown] Multivit-Min/FA/Lycopen/Lutein [Centrum Silver Tablet] 1 ea PO DAILY 08/05/19 [Last Taken Unknown] sitaGLIPtin PHOSPHATE [Januvia] 100 mg PO DAILY 08/05/19 [Last Taken Unknown] - History of Present History Narrative: Patient is a 68-year-old white female with past medical history significant for hypertension, diabetes, CHF, chronic renal failure, has been on recent antib iotics for a foot infection (Rx by podiatry) comes to the ER today due to 3 weeks of diarrhea that is getting progressively worse, with increased weakness. She states that her sugars have been in their typical range. She denies any vomiting but has had decreased appetite. She does have some abdominal pain (right and left lower) with mucousy stools but no blood in her stools. She states that today she had a fever for the first time of 100.0. She denies any ill contacts and has been home and self isolated for weeks. She admits to weakness and shortness of breath, but denies cough or chest pain. She does feel lightheaded, but denies any syncopal episodes. She does state that she has been taking all of her medicines as prescribed with the exception she did not take any blood pressure medicines this morning. She is on a diuretic twice a day. Timing: getting worse Severity: moderate Modifying Factors - (Improves): Present: rest Modifying Factors - (Worsens): Present: movement Review of Systems - Review of Systems Constitutional: Present: fever, weakness, fatigue. Absent: chills, malaise EYE: Absent: blurred vision, double vision ENT: Absent: ear pain, sore throat Respiratory: Present: shortness of breath. Absent: cough, orthopnea, wheezing Cardiology: Absent: chest pain, palpitations, syncope, edema Gastrointestinal/Abdominal: Present: See HPI, nausea, diarrhea, abdominal pain, eating less, drinking less. Absent: vomiting, constipation Genitourinary: Absent: frequency, pain, dysuria, hematuria Musculoskeletal: Absent: back pain Skin: Absent: rash, dryness Neurological: Present: dizziness/light-headedness, weakness. Absent: anxiety, depressed, numbness, tingling Endocrine: Absent: intolerance to heat, intolerance to cold, increased thirst, increased urine Hematologic/Lymphatic: Absent: easy bruising, easy bleeding Psych: Absent: anxiety, depressed Medical History (Last Reviewed 08/05/19 @ 20:18 by Vel Marlow MD) Acute systolic CHF (congestive heart failure) (Acute) Onset Date: 04/07/19 [facility]. EF 35-40%. Started Bumex 2mg twice daily to maintain adequate volume status. Isordil and hydralazine were started for afterload reduction. 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) Anemia (Chronic) Diabetic peripheral neuropathy (Chronic) Pes planus (Chronic) Onset Date: Unknown Hypothyroidism (Chronic) Onset Date: 04/09/17 Hypertriglyceridemia (Chronic) Onset Date: Unknown Hypertension (Chronic) Onset Date: Unknown GERD (gastroesophageal reflux disease) (Chronic) Onset Date: Unknown Diabetes mellitus type 2 in obese (Chronic) Onset Date: Unknown Depression (Chronic) Onset Date: Unknown Hypercholesteremia Lives with spouse No history of alcohol use Non-tobacco user Wears glasses Pyogenic arthritis of right shoulder region Onset Date: 04/01/19 Acute appendicitis Acute kidney injury Onset Date: 04/01/19 Acute renal failure Onset Date: 06/08/18 Aortic valve endocarditis Onset Date: 04/07/19 Avascular necrosis of bone Bacteremia Onset Date: 04/07/19 MRSA. Completed 6 weeks of IV daptomycin. Cellulitis Chronic appendicitis Dizziness Hyperglycemia Hyperglycemia Onset Date: 06/08/18 Hyperkalemia Onset Date: 04/07/19 Hypoxemia Onset Date: 04/07/19 During prolonged hospitalization at [facility] (04/01/2019-05/20/2019) patient had 2 episodes of hypoxic respiratory failure needing intubation and management in the ICU. Lisfranc fracture MRSA (methicillin resistant staph aureus) culture positive Onset Date: 04/07/19 [facility]. Right shoulder I&D and blood cultures, positive MRSA. Completed 6 week course of daptomycin 8mg/kg. Perforated appendicitis Onset Date: 06/08/18 Retrocecal abscess Onset Date: 06/08/18 UTI (urinary tract infection) Influenza vaccination declined Onset Date: 01/15/18 [facility]neum[facility] vaccination declined Prevnar 13 declined, patient reports already receiving although our records indicate otherwise. [facility] History: Surgical History (Last Reviewed 08/05/19 @ 20:18 by Vel Marlow MD) History of abdominal surgery Onset Date: 06/09/18 [facility]. IR Ct drain abscess/cyst retroperitoneal, abdomen. History of bilateral cataract extraction Onset Date: ~02/2015 Dr. Dustin Amaro History of colonoscopy Onset Date: 08/16/18 [place]-10/30/14 normal. Recheck 10 years. 08/16/18-diverticulosis. Recheck 10 yrs. History of esophagogastroduodenoscopy (EGD) Onset Date: 10/30/14 [place]-clotest negative. Inflammation GE junction, changes compatible w/[employer] History of laparoscopic appendectomy Onset Date: 08/25/18 [place] History of left breast biopsy Onset Date: Unknown History of left breast biopsy Onset Date: Unknown History of sinogram with drain removal Onset Date: 06/18/18 Dr. Tiffani Kumar, [facility]. Family History: Family History (Last Reviewed 08/05/19 @ 20:18 by Vel Marlow MD) Brother Diabetes Sister Diabetes Father , age 92-old age Diabetes History of coronary artery disease Mother , qge 60-CAD History of coronary artery disease CVA (cerebral vascular accident) Brother , age 53-unknown cause Schizophrenia Daughter Alive and well Daughter Family history of thyroid problem Social History: (Last Reviewed 08/05/19 @ 20:18 by Vel Marlow MD) Social History: adopted: No skilled nursing: No Marital status: household members: spouse number of children: 2 current occupational status: retired Previous occupational history: Daycare Provider Highest education level completed: high school graduate Sexually Active: Yes Service: No Tobacco: Smoking Status: Former smoker Alcohol: alcohol intake: never Substance Use: substance use type: does not use Dietary Habits: caffeine: No Albertina/Uatsdin: special albertina needs: No Personal Safety: victim of physical abuse: No victim of emotional abuse: No Physical Exam - Physical Exam General Appearance: Present: wd/wn, alert, moderate distress, anxious Head Exam: Present: normal inspection Eye Exam: Normal inspection: bilateral, PERRL: bilateral, EOMI: bilateral Ears, Nose, Throat: Present: normal except -, dry mucous membranes Neck: Present: normal inspection, supple Respiratory: Present: no respiratory distress, normal breath sounds, no accessory muscle use, chest nontender, lungs clear Cardiovascular/Chest: Present: regular rate, rhythm, no murmur, other - Patient has no palpable radial pulse. Peripheral Pulses: N=norm/S=strong/W=weak/B=bound/A=absent: Radial (R): Absent, Femoral (R): Weak Gastrointestinal/Abdominal: Present: nondistended, soft, no organomegaly, tenderness - Right lower quadrant > left lower quadrant, abnormal bowel sounds - Hyperactive. Absent: guarding, rebound, Psoas sign Extremity Exam: Present: normal inspection, non-tender Neurological Exam: Present: alert, oriented, normal mood/affect, no motor/sensory deficits Skin Exam: Present: pallor, other - Skin is dry and tenting. Progress - Results and Orders Patient's Lab Results:: I have reviewed the patient's lab results. Results and Orders: Laboratory Tests 08/05/19 20:00 WBC 28.3 H RBC 3.75 L Hgb 10.2 L Hct 32.5 L MCV 86.7 MCH 27.2 MCHC 31.4 L RDW 16.1 H Plt Count 299 MPV 10.1 Neutrophils % (Manual) 71 Band Neuts % (Manual) 15 H Lymphocytes % (Manual) 3 L Monocytes % (Manual) 9 Neutrophils # (Manual) 20.1 H Lymphocytes # (Manual) 0.8 L Monocytes # (Manual) 2.5 H Atypic/Reactive Lymphs 2 Platelet Estimate Normal RBC Morphology Normal - Vital Signs Patient's Vital Signs:: I have reviewed the patient's vital signs. Vital Signs: Vital Signs 08/05/19 19:58 Temperature 36.9 C Pulse Rate 85 Respiratory Rate 26 H Blood Pressure 70/37 L O2 Sat by Pulse Oximetry 98 - Progress/Reassessment Chief Complaint: General Assessment Progress:: Improved - But still in poor condition. Progress Note-Subjective: 08/05/19 20:42 500 mL was infused. Patient still feeling very weak and much better. Blood pressures are improved with systolic now into the 80s. Assessment of her lung shows no rales. Subjectively patient has no increased shortness of breath. We will give her another 500 mL's normal saline. - Transfer of Care Expected Disposition: Admit Additional Notes: Case discussed with Dr. Ch. He is agreeable to admit patient for severe dehydration, acute kidney injury, C. difficile colitis, UTI and leukocytosis. Given elevation of her white count, CRP and ESR and left foot infection we will add an x-ray to her orders to be sure she is not developing an osteomyelitis that might require surgery. At this point he states just the Rocephin for the UTI and the oral vancomycin for the C. difficile colitis. We have ordered a stool sample for collection for C. difficile. Blood pressures are improved but MAP is still only 57. MAP was 48 at time of presentation. We will continue patient with 125 mL's per hour of normal saline. Plan - Plan Plan: Patient is alert but complains of weakness which is understandable given her low blood pressures. Given her history of CHF we will give her a 500 mL bolus and reassess her blood pressures at that time. Will assess for infectious etiology, evaluate her renal function as well as check a UA to be sure this is not being contributed to by UTI. Suspect given her history of antibiotics that this is most likely C. difficile colitis. Given home isolation and known exposures I have a low suspicion for COVID-19. White count is 28,000 with a bandemia of 15%. Suspect some of this is contraction result from dehydration. Still believe patient's white count and hypotension patient will need inpatient treatment. Given patient's elevated CRP and ESR, leukocytosis with bandemia and x-ray on 08/02/2019 showing possible osteomyelitis, believe that patient does have an early osteomyelitis. Will inform admitting physician for consideration of IV antibiotics for this. We will start patient on vancomycin to cover staph and do ceftriaxone to cover both her UTI and osteo-. Due to nephrotoxicity did not want to do other medications that might have renal issues such as Cipro or Zosyn. We will have pharmacy adjust the vancomycin dosing. Departure Clinical Impression: C. difficile colitis, Osteomyelitis of foot, left, acute Hypotension Qualifiers: Hypotension type: hypotension due to hypovolemia Qualified Code(s): I95.89 - Other hypotension Acute renal failure Qualifiers: Acute renal failure type: with acute tubular necrosis Qualified Code(s): N17.0 - Acute kidney failure with tubular necrosis UTI (urinary tract infection) Qualifiers: Urinary tract infection type: acute cystitis Hematuria presence: with hematuria Qualified Code(s): N30.01 - Acute cystitis with hematuria - Departure Disposition: Still a patient Condition: Poor
[2019-08-05] MEDS ORDERED: NORMAL SALINE 500 ML IV ONE ×2 (20:13→20:42)
[2019-08-05 20:19] LABS: Hematocrit 32.5 % (37.0-47.0); Hemoglobin 10.2 gm/dL (12.5-16.0); Mean Cell Volume 86.7 fl (78-100); Mean Corpuscular Hemoglobin 27.2 pg (27-31); Mean Corpuscular Hgb Conc 31.4 g/dl (32-36); Mean Platelet Volume 10.1 fl (8-12.5); Platelet Count 299 K/mm3 (150-450); Red Blood Count 3.75 M/mm3 (4.2-5.4); Red Cell Distribution Width 16.1 % (11.5-14.0); White Blood Count 28.3 K/mm3 (4.0-10.5)
[2019-08-05 20:28] LABS: Total Cells Counted 100
[2019-08-05 20:31] LABS: ALT 16 U/L (19-67); AST 15 U/L (0-48); Albumin * 2.3 gm/dl (3.4-5.0); Alkaline Phosphatase * 109 U/L (50-170); Anion Gap 23.6 mmol/L (6.8-13.8); BUN/Creatinine Ratio 16.1 (9.0-21.6); Bilirubin, Total 0.4 mg/dL (0.0-1.1); Blood Urea Nitrogen 61 mg/dL (3-23); Ca. Corrected For Albumin 9.3 mg/dL (8.4-10.2); Calcium * 8.3 mg/dL (7.9-10.9); Carbon Dioxide 12.7 mmol/L (24-32.6); Chloride 107 mmol/L (97-106); Glucose * 106 mg/dL (70-110); Potassium 5.3 mmol/L (3.4-4.6); Sodium 138 mmol/L (132-142); Total Protein 6.8 gm/dL (6.2-8.2)
[2019-08-05 20:32] LABS: Atypical (Reactive) Lymph 2 % (0-2); Band 15 % (0-2.0); Lymphocyte 3 % (20-51); Monocyte 9 % (0-9); Neutrophil 71 % (42-75); Neutrophil # 20.1 K/mm3 (1.3-6.0); Platelet Estimate Normal (NORMAL)
[2019-08-05 20:33] LABS: RBC Morphology Normal (NORMAL)
[2019-08-05 20:37] LABS: Urine Bilirubin Negative (NEGATIVE); Urine Blood 25 /ul (NEGATIVE); Urine Ketone Negative (NEGATIVE); Urine Protein Negative (NEGATIVE); Urine Specific Gravity >=1.030 SP.GR. (1.005-1.010); Urine Urobilinogen Normal (NORMAL)
[2019-08-05 20:45] LABS: Urine Appearance Cloudy (CLEAR); Urine Bacteria 2+; Urine Color Yellow; Urine Nitrite Positive (NEGATIVE); Urine RBC 0-5 /hpf (0-5)
[2019-08-05] MEDS ORDERED: VANCOMYCIN HCL 50 MG/ML BTL PO ONE (20:45)
[2019-08-05 20:51] LABS: Troponin I Less than 0.017 ng/mL (0.00-0.10)
[2019-08-05] MEDS ORDERED: cefTRIAXone SODIUM 1,000 MG/100 ML BAG IV ONE (20:53)
[2019-08-05] MEDS ORDERED: NORMAL SALINE 1,000 ML IV ONE (21:22)
[2019-08-05] MEDS ORDERED: NORMAL SALINE 1,000 ML IV PRN (21:27)
[2019-08-05] MEDS ORDERED: VANCOMYCIN/WATER FOR INJ (PEG) 1 GM/200 ML BAG IV SCH (22:00)
[2019-08-06] MEDS ORDERED: NORMAL SALINE 1,000 ML IV ONE
[2019-08-06] MEDS: NORMAL SALINE 1,000 ML IV PRN ×2 (01:44→06:40)
[2019-08-06] MEDS: NORMAL SALINE 1,000 ML IV ONE ×2 (04:45→05:25)
[2019-08-06 07:21] LABS: Hematocrit 26.9 % (37.0-47.0); Hemoglobin 8.4 gm/dL (12.5-16.0); Mean Cell Volume 86.8 fl (78-100); Mean Corpuscular Hemoglobin 27.1 pg (27-31); Mean Corpuscular Hgb Conc 31.2 g/dl (32-36); Mean Platelet Volume 9.9 fl (8-12.5); Platelet Count 252 K/mm3 (150-450); Red Cell Distribution Width 16.4 % (11.5-14.0); White Blood Count 20.6 K/mm3 (4.0-10.5)
[2019-08-06 07:31] LABS: Albumin * 1.6 gm/dl (3.4-5.0); Anion Gap 19.2 mmol/L (6.8-13.8); BUN/Creatinine Ratio 18.2 (9.0-21.6); Bilirubin, Total 0.3 mg/dL (0.0-1.1); Ca. Corrected For Albumin 8.7 mg/dL (8.4-10.2); Calcium * 7.1 mg/dL (7.9-10.9); Carbon Dioxide 12.7 mmol/L (24-32.6); Potassium 4.9 mmol/L (3.4-4.6); Total Protein 5.2 gm/dL (6.2-8.2)
[2019-08-06 07:32] LABS: Total Cells Counted 100
[2019-08-06 07:51] LABS: Atypical (Reactive) Lymph 1 % (0-2); Band 8 % (0-2.0); Lymphocyte 8 % (20-51); Monocyte 4 % (0-9); Neutrophil 79 % (42-75); Neutrophil # 16.3 K/mm3 (1.3-6.0); Platelet Estimate Normal (NORMAL)
[2019-08-06 07:52] LABS: RBC Morphology Normal (NORMAL)
[2019-08-06] MEDS: VANCOMYCIN HCL 50 MG/ML BTL PO SCH ×3 (08:27→18:43)
[2019-08-06] MEDS: ACETAMINOPHEN 500 MG TABLET PO PRN (18:41)
--- NOTE | 2019-08-06 21:20 | HP ---
Chief Complaint - Chief Complaint Date of Service: 08/06/19 Time of Service: 01:00 Chief Complaint: Diarrhea History of Present Illness: Tapan reports she has been feeling weak with diarrhea and poor oral intake. She has been on multiple antibiotics for treatment of diabetic foot ulcer. She has been following with Dr. Laura and the wound has been reportedly healing. She had an xray that showed possible osteomyelitis. She reports over the past week she has been having severe diarrhea. She reports prior history of MRSA. She reports her blood sugars have been well controlled. Medical History (Last Reviewed 08/05/19 @ 22:47 by Renata Munoz RN) Acute systolic CHF (congestive heart failure) (Acute) Onset Date: 04/07/19 [facility]. EF 35-40%. Started Bumex 2mg twice daily to maintain adequate volume status. Isordil and hydralazine were started for afterload reduction. 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) Anemia (Chronic) Diabetic peripheral neuropathy (Chronic) Pes planus (Chronic) Onset Date: Unknown Hypothyroidism (Chronic) Onset Date: 04/09/17 Hypertriglyceridemia (Chronic) Onset Date: Unknown Hypertension (Chronic) Onset Date: Unknown GERD (gastroesophageal reflux disease) (Chronic) Onset Date: Unknown Diabetes mellitus type 2 in obese (Chronic) Onset Date: Unknown Depression (Chronic) Onset Date: Unknown Hypercholesteremia Lives with spouse No history of alcohol use Non-tobacco user Wears glasses Pyogenic arthritis of right shoulder region Onset Date: 04/01/19 Acute appendicitis Acute kidney injury Onset Date: 04/01/19 Acute renal failure Onset Date: 06/08/18 Aortic valve endocarditis Onset Date: 04/07/19 Avascular necrosis of bone Bacteremia Onset Date: 04/07/19 MRSA. Completed 6 weeks of IV daptomycin. Cellulitis Chronic appendicitis Dizziness Hyperglycemia Hyperglycemia Onset Date: 06/08/18 Hyperkalemia Onset Date: 04/07/19 Hypoxemia Onset Date: 04/07/19 During prolonged hospitalization at [facility] (04/01/2019-05/20/2019) patient had 2 episodes of hypoxic respiratory failure needing intubation and management in the ICU. Lisfranc fracture MRSA (methicillin resistant staph aureus) culture positive Onset Date: 04/07/19 [facility]. Right shoulder I&D and blood cultures, positive MRSA. Completed 6 week course of daptomycin 8mg/kg. Perforated appendicitis Onset Date: 06/08/18 Retrocecal abscess Onset Date: 06/08/18 UTI (urinary tract infection) Influenza vaccination declined Onset Date: 01/15/18 Patient will receive at [facility]. [facility] Pneumococcal vaccination declined Prevnar 13 declined, patient reports already receiving although our records indicate otherwise. [facility] History: Surgical History (Last Reviewed 08/05/19 @ 22:48 by Renata Munoz RN) History of abdominal surgery Onset Date: 06/09/18 [facility]. IR Ct drain abscess/cyst retroperitoneal, abdomen. History of bilateral cataract extraction Onset Date: ~02/2015 Dr. Dustin Amaro History of colonoscopy Onset Date: 08/16/18 [place]-10/30/14 normal. Recheck 10 years. 08/16/18-diverticulosis. Recheck 10 yrs. History of esophagogastroduodenoscopy (EGD) Onset Date: 10/30/14 [place]-clotest negative. Inflammation GE junction, changes compatible w/[employer] History of laparoscopic appendectomy Onset Date: 08/25/18 [place] History of left breast biopsy Onset Date: Unknown History of left breast biopsy Onset Date: Unknown History of sinogram with drain removal Onset Date: 06/18/18 Dr. Tiffani Kumar, [facility]. Family History: Family History (Last Reviewed 08/05/19 @ 22:48 by Renata Munoz, YAZMIN) Brother Diabetes Sister Diabetes Father , age 92-old age Diabetes History of coronary artery disease Mother , qge 60-CAD History of coronary artery disease CVA (cerebral vascular accident) Brother , age 53-unknown cause Schizophrenia Daughter Alive and well Daughter Family history of thyroid problem Social History: (Last Reviewed 08/05/19 @ 22:48 by Renata Munoz, RN) Social History: adopted: No custodial: No Marital status: household members: spouse number of children: 2 current occupational status: retired Previous occupational history: Daycare Provider Highest education level completed: high school graduate Sexually Active: Yes Service: No Tobacco: Smoking Status: Former smoker Alcohol: alcohol intake: never Substance Use: substance use type: does not use Dietary Habits: caffeine: No Albertina/Adventism: special albertina needs: No Personal Safety: victim of physical abuse: No victim of emotional abuse: No Review Of Systems (GEN) - Review of Systems Generalized/Overall Review: Present: Weakness, Chills. Absent: Fever EENTM: Present: No Symptoms Reported Respiratory: Present: Cough. Absent: Shortness of Breath Cardiac: Present: Chest Pain. Absent: Edema Abdominal: Present: Nausea, Diarrhea. Absent: Vomiting, Hematemesis Genitourinary: Present: Urgency, Frequency Musculoskeletal: Absent: Joint Pain, Back Pain Neurological: Present: Weakness. Absent: Headache Skin: Absent: Dryness, Lesions Endocrine: Absent: Intolerance to Cold, Intolerance to Heat Immunizations: IMMUNIZATION HX Immunizations Up to Date Yes History of Influenza Vaccine Yes Hx Pneumococcal Vaccination Yes Allergies/Adverse Reactions: Allergies Allergy/AdvReac Type Severity Reaction Status Date / Time sulfamethoxazole Allergy Intermediate Hives Verified 08/05/19 22:48 [From Bactrim] trimethoprim [From Bactrim] Allergy Intermediate Hives Verified 08/05/19 22:48 metformin AdvReac Intermediate Diarrhea Verified 08/05/19 22:48 Home Medications: HOME MEDICATIONS Cinnamon Bark [Cinnamon] 500 mg PO DAILY 09/08/14 [Last Taken 08/15/18] L.acidoph,Paracasei, B.lactis [Probiotic] 1 ea PO DAILY 09/08/14 [Last Taken 08/15/18] Cholecalciferol (Vitamin D3) [Vitamin D3] 1,000 unit PO DAILY 02/01/15 [Last [place] en 08/15/18] aspirin 325 mg tablet 325 mg PO DAILY 03/01/18 [Last Taken 08/15/18] blood sugar diagnostic See Dose Instructions .ROUTE .MEDSUPPLY #20 ea 03/01/18 [Last Taken Unknown] blood-glucose meter See Dose Instructions .ROUTE .MEDSUPPLY #1 ea 03/01/18 [Last Taken Unknown] cranberry concentrate-ascorbic acid 4,200 mg-20 mg capsule 1 cap PO DAILY cap 03/01/18 [Last Taken 08/15/18] lancets 28 gauge See Dose Instructions .ROUTE .MEDSUPPLY #25 ea 03/01/18 [Last Taken Unknown] tbbaiabb-uye-apjrj acid 0.4 mg-lycopene 300 mcg-lutein 250 mcg tablet 1 tab PO DAILY 03/01/18 [Last Taken 08/15/18] Contour Next Test Strips See Dose Instructions .ROUTE .MEDSUPPLY #100 ea NS 06/07/18 [Last Taken Unknown] Acetaminophen [Tylenol] 650 mg PO Q6H PRN tab 08/25/18 [Last Taken Unknown] magnesium 250 mg tablet 500 mg PO DAILY tab 02/15/19 [Last Taken Unknown] ferrous gluconate 324 mg (37.5 mg iron) tablet 324 mg PO TID 05/24/19 [Last Taken Unknown] melatonin 3 mg tablet 3 mg PO HS 05/24/19 [Last Taken Unknown] sennosides 8.6 mg tablet 8.6 mg PO BID tab 05/24/19 [Last Taken Unknown] alprazolam 0.25 mg tablet 0.25 mg PO HS PRN #90 tab 06/02/19 [Last Taken Unknown] amlodipine 10 mg tablet 10 mg PO DAILY #90 tab 06/02/19 [Last Taken Unknown] bumetanide 2 mg tablet 2 mg PO BID PRN 06/02/19 [Last Taken Unknown] insulin glargine 100 unit/mL subcutaneous solution 7 unit SUBCUT DAILY #10 ml 06/02/19 [Last Taken Unknown] insulin lispro 100 unit/mL subcutaneous solution 8 unit SUBCUT AC #10 ml 06/02/19 [Last Taken Unknown] isosorbide dinitrate 10 mg tablet 10 mg PO TID #90 tab 06/02/19 [Last Taken U nknown] omeprazole 40 mg capsule,delayed release 40 mg PO DAILY PRN #90 cap 06/02/19 [Last Taken Unknown] pravastatin 40 mg tablet 40 mg PO HS #90 tab 06/02/19 [Last Taken Unknown] sertraline 100 mg tablet 100 mg PO DAILY #90 tab 06/02/19 [Last Taken Unknown] sertraline 25 mg tablet 25 mg PO DAILY #90 tab 06/02/19 [Last Taken Unknown] insulin syr/ndl U100 half dustin 0.3 mL 31 gauge x 5/16" See Rx Instructions .ROUTE .MEDSUPPLY #100 ea 06/03/19 [Last Taken Unknown] levofloxacin 750 mg tablet 750 mg PO Q48H 14 Days #7 tab 08/03/19 [Last Taken Unknown] Glimepiride mg PO DAILY 08/05/19 [Last Taken Unknown] Losartan/Hydrochlorothiazide [Losartan-Hctz 100-12.5 mg Tab] 1 ea PO DAILY 08/05/19 [Last Taken Unknown] Multivit-Min/FA/Lycopen/Lutein [Centrum Silver Tablet] 1 ea PO DAILY 08/05/19 [Last Taken Unknown] sitaGLIPtin PHOSPHATE [Januvia] 100 mg PO DAILY 08/05/19 [Last Taken Unknown] Exam - Exam Vital Signs: Vital Signs - Last Taken Temp 36.4 C 08/06/19 17:54 Pulse 91 08/06/19 17:54 Resp 18 08/06/19 17:54 BP 105/41 08/06/19 17:54 Pulse Ox 97 08/06/19 17:54 Constitutional: Present: Alert, Oriented x3, Cooperative ENT Exam: Present: hearing grossly normal Eye Exam: bilateral eye: normal inspection Respiratory: Present: normal breath sounds, no respiratory distress, no accessory muscle use Cardiovascular/Chest: Present: regular rate, rhythm, no edema Peripheral Pulses: radial (R): 2+, radial (L): 2+ Abdomen: Present: Normal bowel sounds, soft, nontender, nondistended Extremity: Present: normal range of motion Skin Exam: Present: normal color, other - Lorna sized wound on left foot, no erythema or drainage Neurologic: Present: director of emergency nursing II-XII nml as tested, alert, normal mood/affect, oriented x 3 Appearance: Present: appropriate appearance, appropriate insight Eye contact: Present: cooperative, good eye contact, normal speech Thoughts: Present: normal thought pattern, no apparent hallucination Diagnostic Studies: Abnormal Lab Results 08/06/19 08/06/19 08/06/19 Range/Units 00:08 02:30 07:00 WBC 20.6 H D (4.0-10.5) K/mm3 RBC 3.10 L (4.2-5.4) M/mm3 Hgb 8.4 L (12.5-16.0) gm/dL Hct 26.9 L (37.0-47.0) % MCHC 31.2 L (32-36) g/dl RDW 16.4 H (11.5-14.0) % Neutrophils % (Manual) 79 H (42-75) % Band Neuts % (Manual) 8 H (0-2.0) % Lymphocytes % (Manual) 8 L (20-51) % Neutrophils # (Manual) 16.3 H (1.3-6.0) K/mm3 pCO2 22.0 L (32.0-45.0) mmHg HCO3 9.2 L (21.0-28.0) mmol/L Total CO2 9.9 L (19.0-24.0) mmol/L Base Excess -16.5 L (-2.0-3.0) mmol/L ABG pH 7.24 L (7.35-7.45) VBG pH (7.32-7.43) Potassium (3.4-4.6) mmol/L Chloride (97-106) mmol/L Carbon Dioxide (24-32.6) mmol/L Anion Gap (6.8-13.8) mmol/L BUN (3-23) mg/dL Creatinine (0.4-1.4) mg/dL Est GFR (Non-Af Amer) (60-130) mL/min Random Glucose (70-110) mg/dL Calcium (7.9-10.9) mg/dL ALT (19-67) U/L Total Protein (6.2-8.2) gm/dL Albumin (3.4-5.0) gm/dl Stl C.difficile Tox A&B Positive H (Negative) 08/06/19 08/06/19 Range/Units 07:00 11:12 WBC (4.0-10.5) K/mm3 RBC (4.2-5.4) M/mm3 Hgb (12.5-16.0) gm/dL Hct (37.0-47.0) % MCHC (32-36) g/dl RDW (11.5-14.0) % Neutrophils % (Manual) (42-75) % Band Neuts % (Manual) (0-2.0) % Lymphocytes % (Manual) (20-51) % Neutrophils # (Manual) (1.3-6.0) K/mm3 pCO2 (32.0-45.0) mmHg HCO3 (21.0-28.0) mmol/L Total CO2 (19.0-24.0) mmol/L Base Excess (-2.0-3.0) mmol/L ABG pH (7.35-7.45) VBG pH 7.195 L (7.32-7.43) Potassium 4.9 H (3.4-4.6) mmol/L Chloride 113 H (97-106) mmol/L Carbon Dioxide 12.7 L (24-32.6) mmol/L Anion Gap 19.2 H (6.8-13.8) mmol/L BUN 58 H (3-23) mg/dL Creatinine 3.19 H D (0.4-1.4) mg/dL Est GFR (Non-Af Amer) 15 L (60-130) mL/min Random Glucose 113 H (70-110) mg/dL Calcium 7.1 L (7.9-10.9) mg/dL ALT 12 L (19-67) U/L Total Protein 5.2 L (6.2-8.2) gm/dL Albumin 1.6 L (3.4-5.0) gm/dl Stl C.difficile Tox A&B (Negative) Microbiology 08/05/19 23:56 - Final Nares MRSA Negative 08/05/19 20:28 Urine Culture - Preliminary Urine,Clean Catch Ruling Out Pathogen Laboratory Results WBC 20.6 K/mm3 (4.0-10.5) H D 08/06/19 07:00 RBC 3.10 M/mm3 (4.2-5.4) L 08/06/19 07:00 Hgb 8.4 gm/dL (12.5-16.0) L 08/06/19 07:00 Hct 26.9 % (37.0-47.0) L 08/06/19 07:00 MCV 86.8 fl (78-100) 08/06/19 07:00 MCH 27.1 pg (27-31) 08/06/19 07:00 MCHC 31.2 g/dl (32-36) L 08/06/19 07:00 RDW 16.4 % (11.5-14.0) H 08/06/19 07:00 Plt Count 252 K/mm3 (150-450) 08/06/19 07:00 MPV 9.9 fl (8-12.5) 08/06/19 07:00 Neutrophils % (Manual) 79 % (42-75) H 08/06/19 07:00 Band Neuts % (Manual) 8 % (0-2.0) H 08/06/19 07:00 Lymphocytes % (Manual) 8 % (20-51) L 08/06/19 07:00 Monocytes % (Manual) 4 % (0-9) 08/06/19 07:00 Neutrophils # (Manual) 16.3 K/mm3 (1.3-6.0) H 08/06/19 07:00 Lymphocytes # (Manual) 1.6 k/mm3 (1.5-3.5) 08/06/19 07:00 Monocytes # (Manual) 0.8 k/mm3 (0.0-1.0) 08/06/19 07:00 Atypic/Reactive Lymphs 1 % (0-2) 08/06/19 07:00 Platelet Estimate Normal (NORMAL) 08/06/19 07:00 RBC Morphology Normal (NORMAL) 08/06/19 07:00 ESR 80 mm/hr (0-15) H 08/05/19 20:00 pCO2 22.0 mmHg (32.0-45.0) L 08/06/19 00:08 pO2 98.3 mmHg (83.0-108.0) 08/06/19 00:08 HCO3 9.2 mmol/L (21.0-28.0) L 08/06/19 00:08 Total CO2 9.9 mmol/L (19.0-24.0) L 08/06/19 00:08 Base Excess -16.5 mmol/L (-2.0-3.0) L 08/06/19 00:08 ABG pH 7.24 (7.35-7.45) L 08/06/19 00:08 ABG O2 Sat (Measured) 96.6 % (94.0-98.0) 08/06/19 00:08 VBG pH 7.195 (7.32-7.43) L 08/06/19 11:12 Sodium 140 mmol/L (132-142) 08/06/19 07:00 Plasma Sodium 140 mmol/L (130-142) 08/06/19 07:00 Potassium 4.9 mmol/L (3.4-4.6) H 08/06/19 07:00 Chloride 113 mmol/L (97-106) H 08/06/19 07:00 Carbon Dioxide 12.7 mmol/L (24-32.6) L 08/06/19 07:00 Anion Gap 19.2 mmol/L (6.8-13.8) H 08/06/19 07:00 BUN 58 mg/dL (3-23) H 08/06/19 07:00 Creatinine 3.19 mg/dL (0.4-1.4) H D 08/06/19 07:00 Est GFR (Non-Af Amer) 15 mL/min (60-130) L 08/06/19 07:00 BUN/Creatinine Ratio 18.2 (9.0-21.6) 08/06/19 07:00 Random Glucose 113 mg/dL (70-110) H 08/06/19 07:00 Lactic Acid, Venous 1.7 mmol/L (0.4-2.0) 08/05/19 20:05 Calcium 7.1 mg/dL (7.9-10.9) L 08/06/19 07:00 Calcium Adj for Albumin 8.7 mg/dL (8.4-10.2) 08/06/19 07:00 Total Bilirubin 0.3 mg/dL (0.0-1.1) 08/06/19 07:00 AST 12 U/L (0-48) 08/06/19 07:00 ALT 12 U/L (19-67) L 08/06/19 07:00 Alkaline Phosphatase 86 U/L (50-170) 08/06/19 07:00 Troponin I Less than 0.017 ng/mL (0.00-0.10) 08/05/19 20:00 C-Reactive Prot, Quant 36.0 mg/dL (0.0-0.9) H 08/05/19 20:00 Total Protein 5.2 gm/dL (6.2-8.2) L 08/06/19 07:00 Albumin 1.6 gm/dl (3.4-5.0) L 08/06/19 07:00 Urine Color Yellow 08/05/19:28 Urine Appearance Cloudy (CLEAR) 08/05/19: Urine pH 5.0 pH (5.0-7.0) 08/05/19: Ur Specific [place] >=1.030 SP.GR. (1.005-1.010) 08/05/19 20:28 Urine Protein Negative mg/dL (NEGATIVE) 08/05/19 20: Urine Glucose (UA) Negative mg/dL (NEGATIVE) 08/05/19 20: Urine Ketones Negative mg/dL (NEGATIVE) 08/05/19 20:28 Urine Blood 25 /ul (NEGATIVE) H 08/05/19 20: Urine Nitrate Positive (NEGATIVE) H 08/05/19 20: Urine Bilirubin Negative mg/dl (NEGATIVE) 08/05/19 20: Urine Urobilinogen Normal EU/dl (NORMAL) 08/05/19 20: Ur Leukocyte Esterase 75 /ul (NEGATIVE) H 08/05/19 20: Urine RBC 0-5 /hpf (0-5) 08/05/19 20: Urine WBC 10-25 /hpf (0-5) H 08/05/19 20:28 Ur Epithelial Cells 5-10 /hpf (0-5) H 08/05/19 20:28 Urine Bacteria 2+ (NONE) H 08/05/19 20:28 Urine Culture Comments Culture to follow 08/05/19 20: Stl C.difficile Tox A&B Positive (Negative) H 08/06/19 02:30 Assessment/Plan - Narrative Narrative: Tapan is a 68 yo insulin dependent diabetic with recent diabetic foot ulcer. The ulcer looks to be healing well, but she has been on numerous antibiotics and I suspect Cdiff. Will get stool studies and start oral vanco. She is hypotensive from hypovolumia, will treat with IVF and monitor pressure. Will also cover for possible osteo with iv vancomycin and rocephin. Will continue home medicine for diabetes and monitor blood sugars. - Assessment/Plan (1) C. difficile colitis Problem: Suspected (2) Hypotension Problem: Acute Qualifiers: Hypotension type: hypotension due to hypovolemia Qualified Code(s): I95.89 - Other hypotension; E86.1 - Hypovolemia (3) UTI (urinary tract infection) Problem: Acute Qualifiers: Urinary tract infection type: acute cystitis Hematuria presence: with hematuria Qualified Code(s): N30.01 - Acute cystitis with hematuria (4) Osteomyelitis of foot, left, acute Problem: Suspected (5) Chronic renal disease, stage 3, moderately decreased glomerular filtration rate (GFR) between 30-59 mL/min/1.73 square meter Problem: Chronic
[2019-08-07] MEDS: VANCOMYCIN HCL 50 MG/ML BTL PO SCH ×4 (01:30→18:46)
[2019-08-07] MEDS: ACETAMINOPHEN 500 MG TABLET PO PRN ×2 (08:54→17:04)
[2019-08-07] MEDS ORDERED: PANTOPRAZOLE SODIUM 40 MG TABLET.EC PO PRN (11:56)
[2019-08-07] MEDS ORDERED: MINERAL OIL RC PRN (11:59)
[2019-08-07] MEDS ORDERED: [UNRECOGNIZED DRUG - OTHER] RC PRN (11:59)
[2019-08-07] MEDS ORDERED: PHENYLEPH RC PRN (11:59)
[2019-08-07] MEDS: INSULIN LISPRO 100 UNITS/ML VIAL SC SCH ×2 (12:40→17:05)
[2019-08-07 13:28] LABS: Hemoglobin 9.3 gm/dL (12.5-16.0); Mean Cell Volume 86.2 fl (78-100); Mean Corpuscular Hemoglobin 26.7 pg (27-31); Platelet Count 336 K/mm3 (150-450); Red Blood Count 3.48 M/mm3 (4.2-5.4); Red Cell Distribution Width 16.7 % (11.5-14.0); White Blood Count 23.7 K/mm3 (4.0-10.5)
[2019-08-07 13:40] LABS: Total Cells Counted 100
[2019-08-07 13:56] LABS: Albumin * 1.8 gm/dl (3.4-5.0); BUN/Creatinine Ratio 22.2 (9.0-21.6); Bilirubin, Total 0.2 mg/dL (0.0-1.1); Ca. Corrected For Albumin 10.3 mg/dL (8.4-10.2); Calcium * 8.9 mg/dL (7.9-10.9); Carbon Dioxide 11.7 mmol/L (24-32.6); Potassium 4.7 mmol/L (3.4-4.6); Total Protein 6.2 gm/dL (6.2-8.2)
[2019-08-07] MEDS: SERTRALINE HCL 100 MG TABLET PO SCH (13:58)
[2019-08-07 14:12] LABS: Band 9 % (0-2.0); Eosinophil 1 % (0-3); Lymphocyte 7 % (20-51); Monocyte 5 % (0-9); Neutrophil # 18.5 K/mm3 (1.3-6.0); Platelet Estimate Normal (NORMAL); Spherocyte 1+
[2019-08-07 14:13] LABS: Anisocytosis 1+
[2019-08-07] MEDS ORDERED: SODIUM BICARBONATE 1 MEQ/ML SYRG IV ONE (14:18)
[2019-08-07 14:23] LABS: Neutrophil 78 % (42-75)
--- NOTE | 2019-08-07 17:03 | PN ---
Subjective - Date and Time Seen Date: 08/07/19 Time: 12:00 Subjective Narrative: Tapan reports feeling much better today. She reports the diarrhea is persisting but starting to thicken. She has hemorrhoids that are bothering her from all the bowel movements. Nursing reports bladder prolapse. No fever, chills, nausea, or vomiting. Objective - Vitals Vitals: Last Vital Signs Temp 36.3 C 08/07/19 13:55 Pulse 79 08/07/19 14:00 Resp 20 08/07/19 13:55 BP 113/49 08/07/19 13:55 Pulse Ox 100 08/07/19 13:55 - Abnormal Lab Findings Abnormal Lab Findings: Abnormal Lab Results 08/07/19 08/07/19 08/07/19 Range/Units 12:29 12:29 12:29 WBC 23.7 H (4.0-10.5) K/mm3 RBC 3.48 L (4.2-5.4) M/mm3 Hgb 9.3 L (12.5-16.0) gm/dL Hct 30.0 L (37.0-47.0) % MCH 26.7 L (27-31) pg MCHC 31.0 L (32-36) g/dl RDW 16.7 H (11.5-14.0) % Neutrophils % (Manual) 78 H (42-75) % Band Neuts % (Manual) 9 H (0-2.0) % Lymphocytes % (Manual) 7 L (20-51) % Neutrophils # (Manual) 18.5 H (1.3-6.0) K/mm3 Monocytes # (Manual) 1.2 H (0.0-1.0) k/mm3 ESR 94 H (0-15) mm/hr pCO2 (32.0-45.0) mmHg HCO3 (21.0-28.0) mmol/L Total CO2 (19.0-24.0) mmol/L Base Excess (-2.0-3.0) mmol/L ABG pH (7.35-7.45) VBG pH (7.32-7.43) Potassium 4.7 H (3.4-4.6) mmol/L Chloride 112 H (97-106) mmol/L Carbon Dioxide 11.7 L (24-32.6) mmol/L Anion Gap 22.0 H (6.8-13.8) mmol/L BUN 69 H (3-23) mg/dL Creatinine 3.11 H (0.4-1.4) mg/dL Est GFR (Non-Af Amer) 16 L (60-130) mL/min BUN/Creatinine Ratio 22.2 H (9.0-21.6) Random Glucose 152 H D (70-110) mg/dL Calcium Adj for Albumin 10.3 H (8.4-10.2) mg/dL Albumin 1.8 L (3.4-5.0) gm/dl 08/07/19 08/07/19 Range/Units 12:29 14:50 WBC (4.0-10.5) K/mm3 RBC (4.2-5.4) M/mm3 Hgb (12.5-16.0) gm/dL Hct (37.0-47.0) % MCH (27-31) pg MCHC (32-36) g/dl RDW (11.5-14.0) % Neutrophils % (Manual) (42-75) % Band Neuts % (Manual) (0-2.0) % Lymphocytes % (Manual) (20-51) % Neutrophils # (Manual) (1.3-6.0) K/mm3 Monocytes # (Manual) (0.0-1.0) k/mm3 ESR (0-15) mm/hr pCO2 21.4 L (32.0-45.0) mmHg HCO3 9.3 L (21.0-28.0) mmol/L Total CO2 9.9 L (19.0-24.0) mmol/L Base Excess -16.2 L (-2.0-3.0) mmol/L ABG pH 7.26 L (7.35-7.45) VBG pH 7.067 L* (7.32-7.43) Potassium (3.4-4.6) mmol/L Chloride (97-106) mmol/L Carbon Dioxide (24-32.6) mmol/L Anion Gap (6.8-13.8) mmol/L BUN (3-23) mg/dL Creatinine (0.4-1.4) mg/dL Est GFR (Non-Af Amer) (60-130) mL/min BUN/Creatinine Ratio (9.0-21.6) Random Glucose (70-110) mg/dL Calcium Adj for Albumin (8.4-10.2) mg/dL Albumin (3.4-5.0) gm/dl - Exam Constitutional: Present: Alert, Oriented x3, Cooperative ENT Exam: Present: hearing grossly normal Respiratory: Present: lungs clear, normal breath sounds Cardiovascular/Chest: Present: regular rate, rhythm, no murmur Abdomen: Present: Normal bowel sounds, soft, nontender, nondistended Skin Exam: Present: normal color, warm/dry, no cyanosis Appearance: Present: appropriate appearance, appropriate insight Eye contact: Present: cooperative, good eye contact, normal speech Assessment/Plan Plan Narrative: Tapan is clinically improved today. Diarrhea from CDIFF is improving, continue oral vancomycin. Metabolic acidosis worsened today however, which does not correlate with her clinical condition. I suspect that this is secondary to her poor renal function. Will aid with bicarb due to severe acidosis of 7.067. Will check ABG to see how well this pH correlates. Will also recheck lactate. Plan to give IV amp of bicarb and start oral bicarb due to poor renal function. If this does not improve with external bicarb may need to consider dialysis. There is still a potential concern for osteomyelitis although the foot does not look bad. Blood cultures are negative to date. Will check MRI of foot tomorrow t o further access potential for osteo and discuss with Dr. Laura. Continue IV vancomycin and rocephin for osteo coverage and oral vanco for CDIFF treatment. - Problems/Diagnosis (1) C. difficile colitis Problem: Suspected (2) Severe dehydration Problem: Acute (3) UTI (urinary tract infection) Problem: Acute Qualifiers: Urinary tract infection type: acute cystitis Hematuria presence: with hematuria Qualified Code(s): N30.01 - Acute cystitis with hematuria (4) Hypotension Problem: Resolved Qualifiers: Hypotension type: hypotension due to hypovolemia Qualified Code(s): I95.89 - Other hypotension; E86.1 - Hypovolemia (5) Chronic renal disease, stage 3, moderately decreased glomerular filtration rate (GFR) between 30-59 mL/min/1.73 square meter Problem: Chronic (6) Osteomyelitis of foot, left, acute Problem: Suspected (7) Metabolic acidosis Problem: Acute
[2019-08-07] MEDS: SODIUM BICARBONATE 650 MG TABLET PO SCH ×2 (17:05→20:13)
[2019-08-07] MEDS: SIMVASTATIN 20 MG TABLET PO SCH (20:14)
[2019-08-07] MEDS ORDERED: VANCOMYCIN/WATER FOR INJ (PEG) 1 GM/200 ML BAG IV SCH (23:00)
[2019-08-07] MEDS: HYDROCORTISONE ACETATE 25 MG SUPP.RECT RC PRN (23:05)
[2019-08-08] MEDS: VANCOMYCIN HCL 50 MG/ML BTL PO SCH ×4 (00:49→20:14)
[2019-08-08 06:35] LABS: Hematocrit 29.1 % (37.0-47.0); Hemoglobin 9.1 gm/dL (12.5-16.0); Mean Cell Volume 85.6 fl (78-100); Mean Corpuscular Hemoglobin 26.8 pg (27-31); Mean Corpuscular Hgb Conc 31.3 g/dl (32-36); Mean Platelet Volume 9.5 fl (8-12.5); Platelet Count 307 K/mm3 (150-450); Red Cell Distribution Width 16.9 % (11.5-14.0); White Blood Count 13.5 K/mm3 (4.0-10.5)
[2019-08-08 06:37] LABS: Total Cells Counted 100
[2019-08-08 07:08] LABS: Albumin * 1.6 gm/dl (3.4-5.0); Anion Gap 17.4 mmol/L (6.8-13.8); BUN/Creatinine Ratio 30.3 (9.0-21.6); Bilirubin, Total 0.2 mg/dL (0.0-1.1); Calcium * 8.4 mg/dL (7.9-10.9); Carbon Dioxide 15.4 mmol/L (24-32.6); Potassium 4.8 mmol/L (3.4-4.6); Total Protein 5.7 gm/dL (6.2-8.2)
[2019-08-08 07:09] LABS: Band 2 % (0-2.0); Eosinophil 1 % (0-3); Lymphocyte 12 % (20-51); Monocyte 5 % (0-9); Neutrophil 80 % (42-75); Neutrophil # 10.8 K/mm3 (1.3-6.0)
[2019-08-08 07:12] LABS: Platelet Estimate Normal (NORMAL)
[2019-08-08] MEDS: INSULIN LISPRO 100 UNITS/ML VIAL SC SCH ×3 (07:23→16:43)
[2019-08-08] MEDS: ACETAMINOPHEN 500 MG TABLET PO PRN (07:29)
[2019-08-08] MEDS: SERTRALINE HCL 100 MG TABLET PO SCH (08:05)
[2019-08-08] MEDS: SODIUM BICARBONATE 650 MG TABLET PO SCH ×4 (08:05→20:13)
[2019-08-08] MEDS: amLODIPine BESYLATE 10 MG TABLET PO SCH (09:34)
[2019-08-08] MEDS: SACCHAROMYCES BOULARDII 250 MG CAPSULE PO SCH ×2 (09:34→20:13)
[2019-08-08] MEDS: MEROPENEM 1 GM in NORMAL SALINE 100 ML IV SCH ×2 (09:35→20:15)
[2019-08-08] MEDS: HYDROCORTISONE ACETATE 25 MG SUPP.RECT RC PRN (09:41)
[2019-08-08] MEDS ORDERED: HYDROCORTISONE ACETATE 25 MG SUPP.RECT RC PRN (10:00)
[2019-08-08] MEDS ORDERED: BUMETANIDE 1 MG TABLET PO ONE (12:18)
[2019-08-08 14:06] LABS: Venous Blood Gas HCO3 13.1 mmol/L (22.0-29.0); Venous Blood Gas pH 7.27 (7.32-7.43)
[2019-08-08 14:20] LABS: Albumin * 1.7 gm/dl (3.4-5.0); Anion Gap 17.5 mmol/L (6.8-13.8); BUN/Creatinine Ratio 30.7 (9.0-21.6); Bilirubin, Total 0.1 mg/dL (0.0-1.1); Ca. Corrected For Albumin 9.7 mg/dL (8.4-10.2); Calcium * 8.2 mg/dL (7.9-10.9); Carbon Dioxide 16.9 mmol/L (24-32.6); Potassium 5.4 mmol/L (3.4-4.6); Total Protein 5.7 gm/dL (6.2-8.2)
[2019-08-08] MEDS: SIMVASTATIN 20 MG TABLET PO SCH (20:13)
--- NOTE | 2019-08-08 23:00 | PN ---
Subjective - Date and Time Seen Date: 08/08/19 Time: 08:00 Subjective Narrative: Tapan reports stools a little thicker, but still loose. No fever, chills, nausea, or vomiting. Blood pressure elevatated today. Renal function improving but still too low to get foot MRI with contrast which is needed to evaluate for osteo Objective - Vitals Vitals: Last Vital Signs Temp 36.7 C 08/08/19 20:22 Pulse 79 08/08/19 20:22 Resp 16 08/08/19 20:22 BP 149/55 08/08/19 20:22 Pulse Ox 98 08/08/19 20:22 - Abnormal Lab Findings Abnormal Lab Findings: Abnormal Lab Results 08/08/19 08/08/19 08/08/19 Range/Units 06:30 06:30 06:30 WBC 13.5 H D (4.0-10.5) K/mm3 RBC 3.40 L (4.2-5.4) M/mm3 Hgb 9.1 L (12.5-16.0) gm/dL Hct 29.1 L (37.0-47.0) % MCH 26.8 L (27-31) pg MCHC 31.3 L (32-36) g/dl RDW 16.9 H (11.5-14.0) % Neutrophils % (Manual) 80 H (42-75) % Lymphocytes % (Manual) 12 L (20-51) % Neutrophils # (Manual) 10.8 H (1.3-6.0) K/mm3 pCO2 (32.0-45.0) mmHg pO2 (23.3-35.1) mmHg HCO3 (22.0-29.0) mmol/L Total CO2 (22.0-26.0) mmol/L Base Excess (-2.0-3.0) mmol/L ABG pH (7.32-7.43) VBG pH 7.246 L (7.32-7.43) Sodium 143 H (132-142) mmol/L Plasma Sodium 144 H (130-142) mmol/L Potassium 4.8 H (3.4-4.6) mmol/L Chloride 115 H (97-106) mmol/L Carbon Dioxide 15.4 L (24-32.6) mmol/L Anion Gap 17.4 H (6.8-13.8) mmol/L BUN 66 H (3-23) mg/dL Creatinine 2.18 H D (0.4-1.4) mg/dL Est GFR (Non-Af Amer) 24 L D (60-130) mL/min BUN/Creatinine Ratio 30.3 H (9.0-21.6) Random Glucose 141 H (70-110) mg/dL Total Protein 5.7 L (6.2-8.2) gm/dL Albumin 1.6 L (3.4-5.0) gm/dl 08/08/19 08/08/19 Range/Units 14:00 14:00 WBC (4.0-10.5) K/mm3 RBC (4.2-5.4) M/mm3 Hgb (12.5-16.0) gm/dL Hct (37.0-47.0) % MCH (27-31) pg MCHC (32-36) g/dl RDW (11.5-14.0) % Neutrophils % (Manual) (42-75) % Lymphocytes % (Manual) (20-51) % Neutrophils # (Manual) (1.3-6.0) K/mm3 pCO2 29.3 L (32.0-45.0) mmHg pO2 111.9 H (23.3-35.1) mmHg HCO3 13.1 L (22.0-29.0) mmol/L Total CO2 14.0 L (22.0-26.0) mmol/L Base Excess -12.5 L (-2.0-3.0) mmol/L ABG pH 7.27 L (7.32-7.43) VBG pH (7.32-7.43) Sodium (132-142) mmol/L Plasma Sodium 145 H (130-142) mmol/L Potassium 5.4 H (3.4-4.6) mmol/L Chloride 113 H (97-106) mmol/L Carbon Dioxide 16.9 L (24-32.6) mmol/L Anion Gap 17.5 H (6.8-13.8) mmol/L BUN 63 H (3-23) mg/dL Creatinine 2.05 H (0.4-1.4) mg/dL Est GFR (Non-Af Amer) 26 L (60-130) mL/min BUN/Creatinine Ratio 30.7 H (9.0-21.6) Random Glucose 261 H D (70-110) mg/dL Total Protein 5.7 L (6.2-8.2) gm/dL Albumin 1.7 L (3.4-5.0) gm/dl - Exam Constitutional: Present: Alert, Oriented x3, Cooperative ENT Exam: Present: hearing grossly normal Respiratory: Present: lungs clear, normal breath sounds, no respiratory distress Cardiovascular/Chest: Present: regular rate, rhythm, no edema Abdomen: Present: Normal bowel sounds, soft, nontender, nondistended Assessment/Plan Plan Narrative: 1) Stools thickening, continue oral vanco 2) Renal function improving, continue to monitor. GFR too low for contrast enhanced MRI 3) ESBL UTI changing antibiotics to ampicillin 4) Potential osteo, need MRI with contrast to evaluate but unable due to low GFR. This is improving, will cancel MRI for today and plan to do tomorrow if GRF is improved. 5) Hypertension, add amlodipine and bumex which were previously held due to hypotension. 6) Metabolic Acidosis secondary to Acute renal failure, improving with bicarb. Continue to monitor. - Problems/Diagnosis (1) C. difficile colitis Problem: Suspected (2) Severe dehydration Problem: Acute (3) UTI (urinary tract infection) Problem: Acute Qualifiers: Urinary tract infection type: acute cystitis Hematuria presence: with hematuria Qualified Code(s): N30.01 - Acute cystitis with hematuria (4) Hypotension Problem: Resolved Qualifiers: Hypotension type: hypotension due to hypovolemia Qualified Code(s): I95.89 - Other hypotension; E86.1 - Hypovolemia (5) Chronic renal disease, stage 3, moderately decreased glomerular filtration rate (GFR) between 30-59 mL/min/1.73 square meter Problem: Chronic (6) Osteomyelitis of foot, left, acute Problem: Suspected (7) Metabolic acidosis Problem: Acute (8) ESBL (extended spectrum beta-lactamase) producing bacteria infection Problem: Acute (9) Acute renal failure Problem: Acute Qualifiers: Acute renal failure type: with acute tubular necrosis Qualified Code(s): N17.0 - Acute kidney failure with tubular necrosis
[2019-08-09] MEDS: VANCOMYCIN HCL 50 MG/ML BTL PO SCH ×4 (01:01→18:53)
[2019-08-09 06:28] LABS: Hematocrit 31.6 % (37.0-47.0); Hemoglobin 9.7 gm/dL (12.5-16.0); Mean Cell Volume 85.6 fl (78-100); Mean Corpuscular Hemoglobin 26.3 pg (27-31); Mean Corpuscular Hgb Conc 30.7 g/dl (32-36); Mean Platelet Volume 9.1 fl (8-12.5); Platelet Count 284 K/mm3 (150-450); Red Blood Count 3.69 M/mm3 (4.2-5.4); Red Cell Distribution Width 16.8 % (11.5-14.0); White Blood Count 6.8 K/mm3 (4.0-10.5)
[2019-08-09 06:30] LABS: Total Cells Counted 100
[2019-08-09 06:45] LABS: Albumin * 1.8 gm/dl (3.4-5.0); Anion Gap 15.2 mmol/L (6.8-13.8); BUN/Creatinine Ratio 35.8 (9.0-21.6); Bilirubin, Total 0.2 mg/dL (0.0-1.1); Ca. Corrected For Albumin 9.8 mg/dL (8.4-10.2); Calcium * 8.4 mg/dL (7.9-10.9); Potassium 5.2 mmol/L (3.4-4.6); Total Protein 5.9 gm/dL (6.2-8.2)
[2019-08-09 06:49] LABS: Eosinophil 4 % (0-3); Lymphocyte 17 % (20-51); Monocyte 12 % (0-9); Neutrophil 67 % (42-75); Neutrophil # 4.6 K/mm3 (1.3-6.0)
[2019-08-09 06:54] LABS: Anisocytosis 1+; Howell-Jolly Bodies Trace; Platelet Estimate Normal (NORMAL)
[2019-08-09] MEDS: INSULIN LISPRO 100 UNITS/ML VIAL SC SCH ×3 (07:22→17:26)
[2019-08-09] MEDS: SODIUM BICARBONATE 650 MG TABLET PO SCH ×4 (10:26→20:47)
[2019-08-09] MEDS: SACCHAROMYCES BOULARDII 250 MG CAPSULE PO SCH ×2 (10:26→20:48)
[2019-08-09] MEDS: SERTRALINE HCL 100 MG TABLET PO SCH (10:26)
[2019-08-09] MEDS: amLODIPine BESYLATE 10 MG TABLET PO SCH (10:26)
[2019-08-09] MEDS: CALCIUM CARBONATE 500 MG TAB.CHEW PO PRN ×2 (11:32→18:53)
[2019-08-09] MEDS ORDERED: LIDOCAINE HCL 50 ML VIAL ONE (12:32)
--- NOTE | 2019-08-09 13:12 | ANES ---
Anesthesia Procedure Note Procedure Note: ANESTHESIA PROCEDURE NOTE Date of Procedure: 08/09/2019 Time of procedure: 12:30 PM. Performed by: MARYJANE Perla CRNA, MSN Preprocedure diagnosis: C. difficile positive, IV antibiotic therapy, lack of IV access. Post procedure diagnosis: Same. Procedure: Venipuncture for IV access. Indications: Lack of IV access for antibiotic therapy. Findings: After multiple attempts at initiating an IV, I was called to room 108 to attempt establishing IV access. Details of the procedure: After entering the room in full isolation gear, the patient's hands were warmed with a warm cloth and wrapped in a warm blanket while the IV material was assembled. The patient's left hand was prepped with Betadine and alcohol, 0.1 mL of 1% lidocaine solution was injected at the intended IV site. A number 22-gauge IV was established and flushed without issue. The catheter was then secured in place using Tegaderm and multiple strips of clear plastic tape on the IV and attached IV loop. EBL: Minimal. Fluids: N/A. Specimen: N/A. Post procedure condition: The patient tolerated the procedure well. No complications were noted. Thank you for this consultation. Estiven Brown CRNA, MARYJANE, MSN
[2019-08-09] MEDS: MEROPENEM 1 GM in NORMAL SALINE 100 ML IV SCH (14:33)
[2019-08-09] MEDS ORDERED: VANCOMYCIN/WATER FOR INJ (PEG) 1.5 GM/300 ML BAG IV SCH (15:00)
[2019-08-09] MEDS ORDERED: LOSARTAN POTASSIUM 50 MG TABLET PO SCH (18:00)
[2019-08-09] MEDS: SIMVASTATIN 20 MG TABLET PO SCH (20:49)
--- NOTE | 2019-08-09 22:54 | PN ---
Subjective - Date and Time Seen Date: 08/09/19 Time: 12:30 Subjective Narrative: Tapan is feeling much better. Stools continue to thicken. She is almost feeling well enough for home. Creatinine improves, pH improves. MRI obtained today does not show osteo. No fever, chills, nausea, or vomiting. Objective - Vitals Vitals: Last Vital Signs Temp 37.1 C 08/09/19 21:50 Pulse 80 08/09/19 21:50 Resp 16 08/09/19 21:50 BP 148/64 08/09/19 21:50 Pulse Ox 100 08/09/19 21:50 - Abnormal Lab Findings Abnormal Lab Findings: Abnormal Lab Results 08/09/19 08/09/19 08/09/19 Range/Units 06:23 06:23 06:23 RBC 3.69 L (4.2-5.4) M/mm3 Hgb 9.7 L (12.5-16.0) gm/dL Hct 31.6 L (37.0-47.0) % MCH 26.3 L (27-31) pg MCHC 30.7 L (32-36) g/dl RDW 16.8 H (11.5-14.0) % Lymphocytes % (Manual) 17 L (20-51) % Monocytes % (Manual) 12 H (0-9) % Eosinophils % (Manual) 4 H (0-3) % Lymphocytes # (Manual) 1.2 L (1.5-3.5) k/mm3 VBG pH 7.317 L (7.32-7.43) Sodium 143 H (132-142) mmol/L Plasma Sodium 144 H (130-142) mmol/L Potassium 5.2 H (3.4-4.6) mmol/L Chloride 113 H (97-106) mmol/L Carbon Dioxide 20.0 L (24-32.6) mmol/L Anion Gap 15.2 H (6.8-13.8) mmol/L BUN 59 H (3-23) mg/dL Creatinine 1.65 H D (0.4-1.4) mg/dL Est GFR (Non-Af Amer) 33 L D (60-130) mL/min BUN/Creatinine Ratio 35.8 H (9.0-21.6) Random Glucose 173 H D (70-110) mg/dL Total Protein 5.9 L (6.2-8.2) gm/dL Albumin 1.8 L (3.4-5.0) gm/dl - Exam Constitutional: Present: Alert, Oriented x3, Cooperative ENT Exam: Present: hearing grossly normal Respiratory: Present: lungs clear, normal breath sounds, no respiratory distress Cardiovascular/Chest: Present: regular rate, rhythm Abdomen: Present: Normal bowel sounds, soft, nontender, nondistended Assessment/Plan Plan Narrative: Continues to improve. pH is improved enough that she could be discharged in the next day or two. Once pH has normalized will plan to stop bicarb and follow pH to see if it remains normal. Continue vancomycin oral for CDIF. Continue merrem for ESBL UTI. May discontinue IV vancomycin as osteo is not present. - Problems/Diagnosis (1) C. difficile colitis Problem: Suspected (2) Severe dehydration Problem: Resolved (3) UTI (urinary tract infection) Problem: Acute Qualifiers: Urinary tract infection type: acute cystitis Hematuria presence: with hematuria Qualified Code(s): N30.01 - Acute cystitis with hematuria (4) Hypotension Problem: Resolved Qualifiers: Hypotension type: hypotension due to hypovolemia Qualified Code(s): I95.89 - Other hypotension; E86.1 - Hypovolemia (5) Chronic renal disease, stage 3, moderately decreased glomerular filtration rate (GFR) between 30-59 mL/min/1.73 square meter Problem: Chronic (6) Osteomyelitis of foot, left, acute Problem: Ruled-out (7) Metabolic acidosis Problem: Acute (8) ESBL (extended spectrum beta-lactamase) producing bacteria infection Problem: Acute (9) Acute renal failure Problem: Acute Qualifiers: Acute renal failure type: with acute tubular necrosis Qualified Code(s): N17.0 - Acute kidney failure with tubular necrosis
[2019-08-10] MEDS: VANCOMYCIN HCL 50 MG/ML BTL PO SCH ×4 (02:15→20:11)
[2019-08-10] MEDS: MEROPENEM 1 GM in NORMAL SALINE 100 ML IV SCH ×2 (02:17→14:50)
[2019-08-10 07:07] LABS: Hematocrit 32.9 % (37.0-47.0); Hemoglobin 10.2 gm/dL (12.5-16.0); Mean Cell Volume 86.4 fl (78-100); Mean Corpuscular Hemoglobin 26.8 pg (27-31); Mean Platelet Volume 9.1 fl (8-12.5); Platelet Count 311 K/mm3 (150-450); Red Blood Count 3.81 M/mm3 (4.2-5.4); Red Cell Distribution Width 16.5 % (11.5-14.0); White Blood Count 7.5 K/mm3 (4.0-10.5)
[2019-08-10 07:09] LABS: Total Cells Counted 100
[2019-08-10 07:12] LABS: Albumin * 2.1 gm/dl (3.4-5.0); Anion Gap 14.6 mmol/L (6.8-13.8); BUN/Creatinine Ratio 37.4 (9.0-21.6); Bilirubin, Total 0.2 mg/dL (0.0-1.1); Ca. Corrected For Albumin 9.8 mg/dL (8.4-10.2); Calcium * 8.6 mg/dL (7.9-10.9); Carbon Dioxide 22.4 mmol/L (24-32.6); Total Protein 6.2 gm/dL (6.2-8.2)
[2019-08-10] MEDS: PANTOPRAZOLE SODIUM 40 MG TABLET.EC PO SCH (07:24)
[2019-08-10] MEDS: INSULIN LISPRO 100 UNITS/ML VIAL SC SCH ×3 (07:24→16:50)
[2019-08-10 07:42] LABS: Basophil 3 % (0-1); Eosinophil 5 % (0-3); Lymphocyte 20 % (20-51); Monocyte 15 % (0-9); Neutrophil 57 % (42-75); Neutrophil # 4.3 K/mm3 (1.3-6.0)
[2019-08-10 07:43] LABS: Platelet Estimate Normal (NORMAL)
[2019-08-10 07:46] LABS: Ovalocytes Trace
[2019-08-10] MEDS: LOSARTAN POTASSIUM 50 MG TABLET PO SCH (08:55)
[2019-08-10] MEDS: amLODIPine BESYLATE 10 MG TABLET PO SCH (08:56)
[2019-08-10] MEDS: HYDROCHLOROTHIAZIDE 12.5 MG CAPSULE PO SCH (08:56)
[2019-08-10] MEDS: SERTRALINE HCL 100 MG TABLET PO SCH (08:56)
[2019-08-10] MEDS: SACCHAROMYCES BOULARDII 250 MG CAPSULE PO SCH ×2 (08:56→20:12)
[2019-08-10 15:36] LABS: Anion Gap 13.5 mmol/L (6.8-13.8); BUN/Creatinine Ratio 37.7 (9.0-21.6); Bilirubin, Total 0.2 mg/dL (0.0-1.1); Ca. Corrected For Albumin 9.7 mg/dL (8.4-10.2); Calcium * 8.4 mg/dL (7.9-10.9); Carbon Dioxide 21.8 mmol/L (24-32.6); Potassium 6.3 mmol/L (3.4-4.6); Total Protein 5.9 gm/dL (6.2-8.2)
[2019-08-10] MEDS ORDERED: BUMETANIDE 0.25 MG/ML VIAL IV ONE (16:40)
[2019-08-10] MEDS ORDERED: NON-FORMULARY 1 DOSE DOSE (Sitagliptin Phosphate [Januvia] 100 MG) PO SCH (16:45)
[2019-08-10] MEDS ORDERED: GLIMEPIRIDE 2 MG PO SCH (16:45)
[2019-08-10] MEDS: ACETAMINOPHEN 500 MG TABLET PO PRN (16:55)
[2019-08-10] MEDS: GLIMEPIRIDE 2 MG TABLET PO SCH (17:49)
[2019-08-10] MEDS: HYDROCORTISONE 30 APPL TUBE TP SCH (17:49)
[2019-08-10] MEDS: sitaGLIPtin PHOSPHATE 50 MG TABLET PO SCH (17:50)
[2019-08-10] MEDS: SIMVASTATIN 20 MG TABLET PO SCH (20:12)
[2019-08-10 22:33] LABS: Anion Gap 15.5 mmol/L (6.8-13.8); BUN/Creatinine Ratio 36.9 (9.0-21.6); Bilirubin, Total 0.2 mg/dL (0.0-1.1); Ca. Corrected For Albumin 9.5 mg/dL (8.4-10.2); Calcium * 8.2 mg/dL (7.9-10.9); Carbon Dioxide 21.6 mmol/L (24-32.6); Potassium 6.1 mmol/L (3.4-4.6); Total Protein 5.9 gm/dL (6.2-8.2)
--- NOTE | 2019-08-10 23:00 | PN ---
Subjective - Date and Time Seen Date: 08/10/19 Time: 17:00 Subjective Narrative: Tapan wanted to go home today. She was feeling well. Her potassium was elevated this morning at 6.0. It was rechecked this afternoon and was higher at 6.3. No fever, chills, nausea, or vomiting. Objective - Vitals Vitals: Last Vital Signs Temp 37.1 C 08/10/19 21:49 Pulse 75 08/10/19 21:49 Resp 20 08/10/19 21:49 BP 144/61 08/10/19 21:49 Pulse Ox 97 08/10/19 21:49 - Abnormal Lab Findings Abnormal Lab Findings: Abnormal Lab Results 08/10/19 08/10/19 08/10/19 Range/Units 06:53 06:53 15:16 RBC 3.81 L (4.2-5.4) M/mm3 Hgb 10.2 L (12.5-16.0) gm/dL Hct 32.9 L (37.0-47.0) % MCH 26.8 L (27-31) pg MCHC 31.0 L (32-36) g/dl RDW 16.5 H (11.5-14.0) % Monocytes % (Manual) 15 H (0-9) % Eosinophils % (Manual) 5 H (0-3) % Basophils % (Manual) 3 H (0-1) % Monocytes # (Manual) 1.1 H (0.0-1.0) k/mm3 Basophils # (Manual) 0.2 H (0.0-0.1) k/mm3 VBG pH 7.313 L (7.32-7.43) Plasma Sodium 145 H (130-142) mmol/L Potassium 6.0 H (3.4-4.6) mmol/L Chloride 111 H (97-106) mmol/L Carbon Dioxide 22.4 L (24-32.6) mmol/L Anion Gap 14.6 H (6.8-13.8) mmol/L BUN 55 H (3-23) mg/dL Creatinine 1.47 H (0.4-1.4) mg/dL Est GFR (Non-Af Amer) 37 L (60-130) mL/min BUN/Creatinine Ratio 37.4 H (9.0-21.6) Random Glucose 257 H D (70-110) mg/dL Total Protein (6.2-8.2) gm/dL Albumin 2.1 L (3.4-5.0) gm/dl 08/10/19 Range/Units 15:16 RBC (4.2-5.4) M/mm3 Hgb (12.5-16.0) gm/dL Hct (37.0-47.0) % MCH (27-31) pg MCHC (32-36) g/dl RDW (11.5-14.0) % Monocytes % (Manual) (0-9) % Eosinophils % (Manual) (0-3) % Basophils % (Manual) (0-1) % Monocytes # (Manual) (0.0-1.0) k/mm3 Basophils # (Manual) (0.0-0.1) k/mm3 VBG pH (7.32-7.43) Plasma Sodium (130-142) mmol/L Potassium 6.3 H (3.4-4.6) mmol/L Chloride 110 H (97-106) mmol/L Carbon Dioxide 21.8 L (24-32.6) mmol/L Anion Gap (6.8-13.8) mmol/L BUN 55 H (3-23) mg/dL Creatinine 1.46 H (0.4-1.4) mg/dL Est GFR (Non-Af Amer) 38 L (60-130) mL/min BUN/Creatinine Ratio 37.7 H (9.0-21.6) Random Glucose 256 H (70-110) mg/dL Total Protein 5.9 L (6.2-8.2) gm/dL Albumin 2.0 L (3.4-5.0) gm/dl - Exam Constitutional: Present: Alert, Oriented x3, Cooperative ENT Exam: Present: hearing grossly normal Respiratory: Present: no respiratory distress Cardiovascular/Chest: Present: regular rate, rhythm, no edema Abdomen: Present: Normal bowel sounds, soft, nontender, nondistended, no rebound tenderness Appearance: Present: appropriate appearance, appropriate insight Assessment/Plan Plan Narrative: Tapan is improving, however potassium was significantly elevated today. Likely secondary to losartan and discontinuation of bicarb. Added back HCTZ which should help with potassium. Will also treat with bumex. She is also getting insulin. Will place on telemetry. Will recheck potassium and pH. If still rising may need kayexelate. May need bicarb if pH drops. If potassium goes down and pH is controlled may discharge to home tomorrow. She will need to continue oral vancomycin for a couple more days, possibly longer if stools are not thickened. She has completed merrem for ESBL uti, will discontinue. - Problems/Diagnosis (1) C. difficile colitis Problem: Acute (2) Severe dehydration Problem: Resolved (3) UTI (urinary tract infection) Problem: Resolved Qualifiers: Urinary tract infection type: acute cystitis Hematuria presence: with hematuria Qualified Code(s): N30.01 - Acute cystitis with hematuria (4) Hypotension Problem: Resolved Qualifiers: Hypotension type: hypotension due to hypovolemia Qualified Code(s): I95.89 - Other hypotension; E86.1 - Hypovolemia (5) Chronic renal disease, stage 3, moderately decreased glomerular filtration rate (GFR) between 30-59 mL/min/1.73 square meter Problem: Chronic (6) Osteomyelitis of foot, left, acute Problem: Ruled-out (7) Metabolic acidosis Problem: Acute (8) ESBL (extended spectrum beta-lactamase) producing bacteria infection Problem: Resolved (9) Acute renal failure Problem: Resolved Qualifiers: Acute renal failure type: with acute tubular necrosis Qualified Code(s): N17.0 - Acute kidney failure with tubular necrosis (10) Hyperkalemia Problem: Acute
[2019-08-11] MEDS: MEROPENEM 1 GM in NORMAL SALINE 100 ML IV SCH (02:30)
[2019-08-11] MEDS: VANCOMYCIN HCL 50 MG/ML BTL PO SCH ×3 (02:30→14:11)
[2019-08-11] MEDS: PANTOPRAZOLE SODIUM 40 MG TABLET.EC PO SCH (07:30)
[2019-08-11] MEDS: INSULIN LISPRO 100 UNITS/ML VIAL SC SCH ×2 (07:32→12:01)
[2019-08-11] MEDS: amLODIPine BESYLATE 10 MG TABLET PO SCH (08:41)
[2019-08-11] MEDS: HYDROCHLOROTHIAZIDE 12.5 MG CAPSULE PO SCH (08:41)
[2019-08-11] MEDS: SACCHAROMYCES BOULARDII 250 MG CAPSULE PO SCH (08:41)
[2019-08-11] MEDS: LOSARTAN POTASSIUM 50 MG TABLET PO SCH (08:42)
[2019-08-11] MEDS: SERTRALINE HCL 100 MG TABLET PO SCH (08:42)
[2019-08-11] MEDS: sitaGLIPtin PHOSPHATE 50 MG TABLET PO SCH (08:42)
[2019-08-11] MEDS: GLIMEPIRIDE 2 MG TABLET PO SCH (08:42)
[2019-08-11 09:13] LABS: Hematocrit 33.7 % (37.0-47.0); Hemoglobin 10.2 gm/dL (12.5-16.0); Mean Cell Volume 87.5 fl (78-100); Mean Corpuscular Hemoglobin 26.5 pg (27-31); Mean Corpuscular Hgb Conc 30.3 g/dl (32-36); Mean Platelet Volume 9.4 fl (8-12.5); Platelet Count 313 K/mm3 (150-450); Red Blood Count 3.85 M/mm3 (4.2-5.4); Red Cell Distribution Width 16.2 % (11.5-14.0); White Blood Count 11.4 K/mm3 (4.0-10.5)
[2019-08-11 09:14] LABS: Albumin * 2.1 gm/dl (3.4-5.0); Anion Gap 11.2 mmol/L (6.8-13.8); BUN/Creatinine Ratio 36.2 (9.0-21.6); Bilirubin, Total 0.2 mg/dL (0.0-1.1); Ca. Corrected For Albumin 9.5 mg/dL (8.4-10.2); Calcium * 8.3 mg/dL (7.9-10.9); Carbon Dioxide 23.6 mmol/L (24-32.6); Potassium 5.8 mmol/L (3.4-4.6); Total Protein 6.2 gm/dL (6.2-8.2)
[2019-08-11 09:15] LABS: Total Cells Counted 100
[2019-08-11 09:23] LABS: Band 7 % (0-2.0); Eosinophil 2 % (0-3); Lymphocyte 10 % (20-51); Monocyte 14 % (0-9); Neutrophil 67 % (42-75); Neutrophil # 7.6 K/mm3 (1.3-6.0); Platelet Estimate Normal (NORMAL)
[2019-08-11 09:24] LABS: Anisocytosis 1+; Ovalocytes Trace
[2019-08-11] MEDS ORDERED: SODIUM BICARBONATE 650 MG TABLET PO ONE (09:40)
[2019-08-11] MEDS: HYDROCORTISONE 30 APPL TUBE TP SCH ×3 (10:40→14:11)
[2019-08-11] MEDS: ACETAMINOPHEN 500 MG TABLET PO PRN (10:42)
--- NOTE | 2019-08-11 13:35 | DS ---
(1) C. difficile colitis Problem: Acute (2) Severe dehydration Problem: Resolved (3) UTI (urinary tract infection) Problem: Resolved Qualifiers: Urinary tract infection type: acute cystitis Hematuria presence: with hematuria Qualified Code(s): N30.01 - Acute cystitis with hematuria (4) Hypotension Problem: Resolved Qualifiers: Hypotension type: hypotension due to hypovolemia Qualified Code(s): I95.89 - Other hypotension; E86.1 - Hypovolemia (5) Acute renal failure Problem: Resolved Qualifiers: Acute renal failure type: with acute tubular necrosis Qualified Code(s): N17.0 - Acute kidney failure with tubular necrosis (6) Chronic renal disease, stage 3, moderately decreased glomerular filtration rate (GFR) between 30-59 mL/min/1.73 square meter Problem: Chronic (7) Osteomyelitis of foot, left, acute Problem: Ruled-out (8) Metabolic acidosis Problem: Acute (9) ESBL (extended spectrum beta-lactamase) producing bacteria infection Problem: Resolved (10) Hyperkalemia Problem: Acute Date of Discharge:: 08/11/19 Hospital Course: Tapan is a 69 yo female admitted for Hypotension and acute on chronic renal failure secondary to severe dehydration from diarrhea. Stools studies showed CDiff from recent antibiotics used for diabetic foot ulcer. She was started on oral vancomycin. Urine culture and blood cultures were taken. She did not appear septic but hypotensive from severe dehydration. She was given IV fluids and blood pressure improved. Urine culture ultimately grew ESBL and she was treated with Meropenem IV. She had been treating for diabetic foot ulcer and to make sure that she did not have further infection she had MRI of foot which was negative for osteomyelitis. She had metabolic acidosis secondary to acute on chronic renal failure. This was treated with fluids and bicarb. pH improved. Stools began to thicken. Her potassium was chronically elevated but was worse due to acute renal failure and medication adjustments. She was restarted on home medications, given diuretics, she was placed on telemetry, and with these treatments potassium improved from 6.3 to 5.8. She is feeling well and would like to be discharged. Will monitor pH and CMP as outpatient with a recheck tomorrow and next week I will see her back in clinic. Procedures Performed: none Results and Findings: Lab Pending Results 08/05/19 20:00: WBC 28.3 H, RBC 3.75 L, Hgb 10.2 L, Hct 32.5 L, MCV 86.7, MCH 27.2, MCHC 31.4 L, RDW 16.1 H, Plt Count 299, MPV 10.1, Neutrophils % (Manual) 71, Band Neuts % (Manual) 15 H, Lymphocytes % (Manual) 3 L, Monocytes % (Manual) 9, Neutrophils # (Manual) 20.1 H, Lymphocytes # (Manual) 0.8 L, Monocytes # (Manual) 2.5 H, Atypic/Reactive Lymphs 2, Platelet Estimate Normal, RBC Morphology Normal 08/05/19 20:00: Sodium 138, Plasma Sodium 138, Potassium 5.3 H, Chloride 107 H, Carbon Dioxide 12.7 L, Anion Gap 23.6 H, BUN 61 H, Creatinine 3.78 H D, Est GFR (Non-Af Amer) 13 L D, BUN/Creatinine Ratio 16.1, Random Glucose 106, Calcium 8.3, Calcium Adj for Albumin 9.3, Total Bilirubin 0.4, AST 15, ALT 16 L, Alkaline Phosphatase 109, Troponin I Less than 0.017, C-Reactive Prot, Quant 36.0 H, Total Protein 6.8, Albumin 2.3 L 08/05/19 20:00: ESR 80 H 08/05/19 20:05: Lactic Acid, Venous 1.7 08/05/19 20:28: Urine Color Yellow, Urine Appearance Cloudy, Urine pH 5.0, Ur Specific [place] >=1.030, Urine Protein Negative, Urine Glucose (UA) Negative, Urine Ketones Negative, Urine Blood 25 H, Urine Nitrate Positive H, Urine Bilirubin Negative, Urine Urobilinogen Normal, Ur Leukocyte Esterase 75 H, Urine RBC 0-5, Urine WBC 10-25 H, Ur Epithelial Cells 5-10 H, Urine Bacteria 2+ H, Urine Culture Comments Culture to follow 08/06/19 00:08: pCO2 22.0 L, pO2 98.3, HCO3 9.2 L, Total CO2 9.9 L, Base Excess -16.5 L, ABG pH 7.24 L, ABG O2 Sat (Measured) 96.6 08/06/19 02:30: Stl C.difficile Tox A&B Positive H 08/06/19 07:00: WBC 20.6 H D, RBC 3.10 L, Hgb 8.4 L, Hct 26.9 L, MCV 86.8, MCH 27.1, MCHC 31.2 L, RDW 16.4 H, Plt Count 252, MPV 9.9, Neutrophils % (Manual) 79 H, Band Neuts % (Manual) 8 H, Lymphocytes % (Manual) 8 L, Monocytes % (Manual) 4, Neutrophils # (Manual) 16.3 H, Lymphocytes # (Manual) 1.6, Monocytes # (Manual) 0.8, Atypic/Reactive Lymphs 1, Platelet Estimate Normal, RBC Morphology Normal 08/06/19 07:00: Sodium 140, Plasma Sodium 140, Potassium 4.9 H, Chloride 113 H, Carbon Dioxide 12.7 L, Anion Gap 19.2 H, BUN 58 H, Creatinine 3.19 H D, Est GFR (Non-Af Amer) 15 L, BUN/Creatinine Ratio 18.2, Random Glucose 113 H, Calcium 7.1 L, Calcium Adj for Albumin 8.7, Total Bilirubin 0.3, AST 12, ALT 12 L, Alkaline Phosphatase 86, Total Protein 5.2 L, Albumin 1.6 L 08/06/19 11:12: VBG pH 7.195 L 08/07/19 12:29: WBC 23.7 H, RBC 3.48 L, Hgb 9.3 L, Hct 30.0 L, MCV 86.2, MCH 26.7 L, MCHC 31.0 L, RDW 16.7 H, Plt Count 336, MPV 10.0, Neutrophils % (Manual) 78 H, Band Neuts % (Manual) 9 H, Lymphocytes % (Manual) 7 L, Monocytes % (Manual) 5, Eosinophils % (Manual) 1, Neutrophils # (Manual) 18.5 H, Lymphocytes # (Manual) 1.7, Monocytes # (Manual) 1.2 H, Eosinophils # (Manual) 0.2, Platelet Estimate Normal, Anisocytosis 1+, Spherocytes 1+ 08/07/19 12:29: ESR 94 H 08/07/19 12:29: Sodium 141, Plasma Sodium 142, Potassium 4.7 H, Chloride 112 H, Carbon Dioxide 11.7 L, Anion Gap 22.0 H, BUN 69 H, Creatinine 3.11 H, Est GFR (Non-Af Amer) 16 L, BUN/Creatinine Ratio 22.2 H, Random Glucose 152 H D, Calcium 8.9, Calcium Adj for Albumin 10.3 H, Total Bilirubin 0.2, AST 18, ALT 21, Alkaline Phosphatase 117, Total Protein 6.2, Albumin 1.8 L 08/07/19 12:29: VBG pH 7.067 L* 08/07/19 12:29: Lactic Acid, Venous 0.9 08/07/19 14:50: pCO2 21.4 L, pO2 102.5, HCO3 9.3 L, Total CO2 9.9 L, Base Excess -16.2 L, ABG pH 7.26 L, ABG O2 Sat (Measured) 97.0 08/08/19 06:30: WBC 13.5 H D, RBC 3.40 L, Hgb 9.1 L, Hct 29.1 L, MCV 85.6, MCH 26.8 L, MCHC 31.3 L, RDW 16.9 H, Plt Count 307, MPV 9.5, Neutrophils % (Manual) 80 H, Band Neuts % (Manual) 2, Lymphocytes % (Manual) 12 L, Monocytes % (Manual) 5, Eosinophils % (Manual) 1, Neutrophils # (Manual) 10.8 H, Lymphocytes # (Manual) 1.6, Monocytes # (Manual) 0.7, Eosinophils # (Manual) 0.1, Platelet Estimate Normal, Schurz Cells 1+ 08/08/19 06:30: VBG pH 7.246 L 08/08/19 06:30: Sodium 143 H, Plasma Sodium 144 H, Potassium 4.8 H, Chloride 115 H, Carbon Dioxide 15.4 L, Anion Gap 17.4 H, BUN 66 H, Creatinine 2.18 H D, Est GFR (Non-Af Amer) 24 L D, BUN/Creatinine Ratio 30.3 H, Random Glucose 141 H, Calcium 8.4, Calcium Adj for Albumin 10.0, Total Bilirubin 0.2, AST 30, ALT 25, Alkaline Phosphatase 118, Total Protein 5.7 L, Albumin 1.6 L 08/08/19 14:00: pCO2 29.3 L, pO2 111.9 H, HCO3 13.1 L, Total CO2 14.0 L, Base Excess -12.5 L, ABG pH 7.27 L, VBG O2 Saturation 97.6 08/08/19 14:00: Sodium 142, Plasma Sodium 145 H, Potassium 5.4 H, Chloride 113 H, Carbon Dioxide 16.9 L, Anion Gap 17.5 H, BUN 63 H, Creatinine 2.05 H, Est GFR (Non-Af Amer) 26 L, BUN/Creatinine Ratio 30.7 H, Random Glucose 261 H D, Calcium 8.2, Calcium Adj for Albumin 9.7, Total Bilirubin 0.1, AST 26, ALT 27, Alkaline Phosphatase 116, Total Protein 5.7 L, Albumin 1.7 L 08/09/19 06:23: WBC 6.8 D, RBC 3.69 L, Hgb 9.7 L, Hct 31.6 L, MCV 85.6, MCH 26.3 L, MCHC 30.7 L, RDW 16.8 H, Plt Count 284, MPV 9.1, Neutrophils % (Manual) 67, Lymphocytes % (Manual) 17 L, Monocytes % (Manual) 12 H, Eosinophils % (Manual) 4 H, Neutrophils # (Manual) 4.6, Lymphocytes # (Manual) 1.2 L, Monocytes # (Manual) 0.8, Eosinophils # (Manual) 0.3, Platelet Estimate Normal, Anisocytosis 1+, Byrd-Sedona Bodies Trace 08/09/19 06:23: VBG pH 7.317 L 08/09/19 06:23: Sodium 143 H, Plasma Sodium 144 H, Potassium 5.2 H, Chloride 113 H, Carbon Dioxide 20.0 L, Anion Gap 15.2 H, BUN 59 H, Creatinine 1.65 H D, Est GFR (Non-Af Amer) 33 L D, BUN/Creatinine Ratio 35.8 H, Random Glucose 173 H D, Calcium 8.4, Calcium Adj for Albumin 9.8, Total Bilirubin 0.2, AST 28, ALT 29, Alkaline Phosphatase 104, Total Protein 5.9 L, Albumin 1.8 L 08/10/19 06:53: WBC 7.5, RBC 3.81 L, Hgb 10.2 L, Hct 32.9 L, MCV 86.4, MCH 26.8 L, MCHC 31.0 L, RDW 16.5 H, Plt Count 311, MPV 9.1, Neutrophils % (Manual) 57, Lymphocytes % (Manual) 20, Monocytes % (Manual) 15 H, Eosinophils % (Manual) 5 H, Basophils % (Manual) 3 H, Neutrophils # (Manual) 4.3, Lymphocytes # (Manual) 1.5, Monocytes # (Manual) 1.1 H, Eosinophils # (Manual) 0.4, Basophils # (Manual) 0.2 H, Platelet Estimate Normal, Ovalocytes Trace 08/10/19 06:53: VBG pH 7.336 08/10/19 06:53: Sodium 142, Plasma Sodium 145 H, Potassium 6.0 H, Chloride 111 H, Carbon Dioxide 22.4 L, Anion Gap 14.6 H, BUN 55 H, Creatinine 1.47 H, Est GFR (Non-Af Amer) 37 L, BUN/Creatinine Ratio 37.4 H, Random Glucose 257 H D, Calcium 8.6, Calcium Adj for Albumin 9.8, Total Bilirubin 0.2, AST 29, ALT 35, Alkaline Phosphatase 100, Total Protein 6.2, Albumin 2.1 L 08/10/19 15:16: VBG pH 7.313 L 08/10/19 15:16: Sodium 139, Plasma Sodium 141, Potassium 6.3 H, Chloride 110 H, Carbon Dioxide 21.8 L, Anion Gap 13.5, BUN 55 H, Creatinine 1.46 H, Est GFR (Non-Af Amer) 38 L, BUN/Creatinine Ratio 37.7 H, Random Glucose 256 H, Calcium 8.4, Calcium Adj for Albumin 9.7, Total Bilirubin 0.2, AST 41, ALT 41, Alkaline Phosphatase 100, Total Protein 5.9 L, Albumin 2.0 L 08/10/19 22:13: VBG pH 7.349 08/10/19 22:13: Sodium 139, Plasma Sodium 141, Potassium 6.1 H, Chloride 108 H, Carbon Dioxide 21.6 L, Anion Gap 15.5 H, BUN 55 H, Creatinine 1.49 H, Est GFR (Non-Af Amer) 37 L, BUN/Creatinine Ratio 36.9 H, Random Glucose 248 H, Calcium 8.2, Calcium Adj for Albumin 9.5, Total Bilirubin 0.2, AST 36, ALT 42, Alkaline Phosphatase 95, Total Protein 5.9 L, Albumin 2.0 L 08/11/19 08:58: WBC 11.4 H D, RBC 3.85 L, Hgb 10.2 L, Hct 33.7 L, MCV 87.5, MCH 26.5 L, MCHC 30.3 L, RDW 16.2 H, Plt Count 313, MPV 9.4, Neutrophils % (Manual) 67, Band Neuts % (Manual) 7 H, Lymphocytes % (Manual) 10 L, Monocytes % (Manual) 14 H, Eosinophils % (Manual) 2, Neutrophils # (Manual) 7.6 H, Lymphocytes # (Manual) 1.1 L, Monocytes # (Manual) 1.6 H, Eosinophils # (Manual) 0.2, Platelet Estimate Normal, Anisocytosis 1+, Ovalocytes Trace 08/11/19 08:58: VBG pH 7.253 L 08/11/19 08:58: Sodium 137, Plasma Sodium 140, Potassium 5.8 H, Chloride 108 H, Carbon Dioxide 23.6 L, Anion Gap 11.2, BUN 51 H, Creatinine 1.41 H, Est GFR (Non-Af Amer) 39 L, BUN/Creatinine Ratio 36.2 H, Random Glucose 288 H, Calcium 8.3, Calcium Adj for Albumin 9.5, Total Bilirubin 0.2, AST 36, ALT 43, Alkaline Phosphatase 106, Total Protein 6.2, Albumin 2.1 L Discharge Location: Home Disposition: Home self-care Condition: Fair Discharge Activity: Activity as tolerated Discharge Diet: Consistent carbs Referrals: Chiki Ch DO [Primary Care Provider] - (Schedule on the same day that patient sees Dr. Laura) Negra Laura DPM [Staff Physician] - (Keep already scheduled appointment next week) Problem Oriented Discharge Instructions to Patient/Family: Clostridioides Difficile Infection, [id number], Urinary Tract Infection, Adult, [id number] Prescriptions (Any new or edited meds): Saccharomyces Boulardii [Florastor] 250 mg PO BID #60 cap Transmission Status: Pending to [place], [place] Sodium Bicarbonate 650 mg PO BID #60 tab Transmission Status: Pending to [place] Vancomycin HCl [Vancomycin] 125 mg PO Q6H #100 ml Transmission Status: Pending to [place], [place] Complete Home Medications List: Complete Home Medication List: L.acidoph,Paracasei, B.lactis [Probiotic] 1 ea PO DAILY 09/08/14 aspirin 325 mg tablet 325 mg PO DAILY 03/01/18 blood sugar diagnostic See Dose Instructions .ROUTE .MEDSUPPLY #20 ea 03/01/18 blood-glucose meter See Dose Instructions .ROUTE .MEDSUPPLY #1 ea 03/01/18 cranberry concentrate-ascorbic acid 4,200 mg-20 mg capsule 1 cap PO DAILY cap 03/01/18 lancets 28 gauge See Dose Instructions .ROUTE .MEDSUPPLY #25 ea 03/01/18 [id number]-[id number] acid 0.4 mg-lycopene 300 mcg-lutein 250 mcg tablet 1 tab PO DAILY 03/01/18 alprazolam 0.25 mg tablet 0.25 mg PO HS PRN #90 tab 06/02/19 amlodipine 10 mg tablet 10 mg PO DAILY #90 tab 06/02/19 insulin glargine 100 unit/mL subcutaneous solution 7 unit SUBCUT DAILY #10 ml 06/02/19 insulin lispro 100 unit/mL subcutaneous solution 8 unit SUBCUT AC #10 ml 06/02/19 isosorbide dinitrate 10 mg tablet 10 mg PO TID #90 tab 06/02/19 omeprazole 40 mg capsule,delayed release 40 mg PO DAILY PRN #90 cap 06/02/19 pravastatin 40 mg tablet 40 mg PO HS #90 tab 06/02/19 sertraline 100 mg tablet 100 mg PO DAILY #90 tab 06/02/19 insulin syr/ndl U100 half dustin 0.3 mL 31 gauge x 08/12" See Rx Instructions .ROUTE .MEDSUPPLY #100 ea 06/03/19 levofloxacin 750 mg tablet 750 mg PO Q48H 14 Days #7 tab 08/03/19 Glimepiride 2 mg PO DAILY 08/05/19 Losartan/Hydrochlorothiazide [Losartan-Hctz 100-12.5 mg Tab] 1 ea PO DAILY 08/05/19 Multivit-Min/FA/Lycopen/Lutein [Centrum Silver Tablet] 1 ea PO DAILY 08/05/19 sitaGLIPtin PHOSPHATE [Januvia] 100 mg PO DAILY 08/05/19 Acetaminophen [Tylenol] 1,000 mg PO Q6H PRN tablet 08/11/19 Calcium Carbonate [Tums] 1,000 mg PO TID PRN tab.chew 08/11/19 Saccharomyces Boulardii [Florastor] 250 mg PO BID #60 cap 08/11/19 Sodium Bicarbonate 650 mg PO BID #60 tab 08/11/19 Vancomycin HCl [Vancomycin] 125 mg PO Q6H #100 ml 08/11/19 Amb Orders for Discharge: Comprehensive Metabolic Panel Time Frame: 08/12/19, Facility: [facility], Location: Laboratory Venous pH Time Frame: 08/12/19, Facility: [facility], Location: Laboratory Forms: Patient Portal Registration
[2019-08-11 14:16] VITALS: BP 136/62
== END 2019-08-11 14:35 | disposition home or self-care (01) | DRG 371 ==
LOC: ER 19:47 → MS 21:24
PROVIDERS: ADMIT Family Medicine; ATTEND Family Medicine
DX: E11.42 Type 2 diabetes mellitus with diabetic polyneuropathy; E86.0 Dehydration; N18.3 Chronic kidney disease, stage 3 (moderate); E03.9 Hypothyroidism, unspecified; N30.01 Acute cystitis with hematuria; E11.621 Type 2 diabetes mellitus with foot ulcer; Z79.4 Long term (current) use of insulin; E11.610 Type 2 diabetes mellitus with diabetic neuropathic arthropathy; E11.22 Type 2 diabetes mellitus with diabetic chronic kidney disease; Z16.12 Extended spectrum beta lactamase (ESBL) resistance; I95.89 Other hypotension; L97.529 Non-pressure chronic ulcer of other part of left foot with unspecified severity; A04.72 Enterocolitis due to Clostridium difficile, not specified as recurrent; N17.0 Acute kidney failure with tubular necrosis; I13.0 Hypertensive heart and chronic kidney disease with heart failure and stage 1 through stage 4 chronic kidney disease, or unspecified chronic kidney disease; I50.22 Chronic systolic (congestive) heart failure; E86.1 Hypovolemia; E87.2 Acidosis
CPT/HCPCS: 36415; 36416; 36600; 73630; 73723; 80053; 81001; 82800; 82803; 83605; 84484; 85007; 85025; 85652; 86140; 87040; 87077; 87081; 87086; 87186; 87493; 96361; 96365; 99285; A9576